=== PATIENT | female | born 1970 | race Caucasian/White ===

== ENCOUNTER 2023-09-01 16:20 | Emergency (ER) | payer MEDICAID, SELFPAY ==
[2023-09-01 16:33] VITALS: BP 160/80; PULSE 76; RESP 18; TEMP 36.6; O2SAT 94; BMI 29.5
--- NOTE | 2023-09-01 16:46 | XR_ITS ---
The [address] [address] Patient Name: MEMO SEGAL MRN: [id number] date: 1970 Sex: F Assigned Patient Location: ER Current Patient Location: ER Accession/Order Number: [id number] Exam Date: 09/01/2023 17:00 Report Date: 09/01/2023 17:27 At the request of: TERENCE FOSS Procedure: XR chest 2V EXAM: XR chest 2V HISTORY: cough COMPARISON: None. TECHNIQUE: Upright PA and lateral chest x-ray FINDINGS: The heart is not enlarged and the vasculature is not distended. No acute infiltrate, effusion or pneumothorax is identified. Mild degenerative changes are seen in the spine. XR/XR chest 2V IMPRESSION: No acute infiltrate or evidence of cardiac decompensation. Direct comparison with a previous study would be helpful in determining the chronicity of these findings. Electronically authenticated by: EDIE MORGAN Date: 09/01/2023 17:27
[2023-09-01 17:11] VITALS: O2SAT 96
--- NOTE | 2023-09-01 18:53 | ED.URI1 ---
HPI - URI/Sore Throat General Chief Complaint: Upper Respiratory Infection Stated Complaint: Upper Respiratory Infection Time Seen by Provider: 09/01/23 16:45 Source: patient Limitations: no limitations History of Present Illness HPI Narrative: Patient is a 53-year-old female who presents to the emergency department for a 4 to 5-day history of upper respiratory symptoms. She states she is concerned she may be having a reaction to the clindamycin she was prescribed for dental pain 6 days ago. She states that she started the clindamycin and has now developed runny nose, sinus drainage, cough, chest congestion. She has not developed any hives, lip swelling or tongue swelling. She has an albuterol inhaler at home that is so she has not been able to use it. She feels as though the pain in her teeth is better but she continues to feel inflamed. She has had headache, body aches. She took multiple home COVID test that were negative. No sick contacts in the home. No vomiting or diarrhea. Related Data Previous Rx's Medication Instructions Recorded albuterol sulfate 90 mcg/actuation 2 inh inhalation Q4H PRN shortness 09/01/23 aerosol inhaler of breath or wheezing #8.5 grams nwhvdtzxzdjkrem-cbgdiwehgyhizts-EO 10 ml PO Q6H PRN cold symptoms 09/01/23 2 mg-30 mg-10 mg/5 mL oral syrup #200 mL (Bromfed DM) eaormihswd-lgkpjzjljzvep-jecvldcn 1 cap PO Q8H PRN headache #6 caps 09/01/23 50 mg-300 mg-40 mg capsule (Fioricet) cefdinir 300 mg capsule 300 mg PO BID 10 days #20 caps 09/01/23 prednisone 20 mg tablet 60 mg (3 x 20 mg) PO DAILY 3 days 09/01/23 #9 tabs Allergies Allergy/AdvReac Type Severity Reaction Status Date / Time clindamycin AdvReac Intermediate Uncoded 09/01/23 16:33 Review of Systems ROS Constitutional Reports: chills; Denies: fever Ears, nose, mouth, and throat Reports: nasal congestion; Denies: throat pain Cardiovascular Denies: chest pain Respiratory Reports: cough; Denies: shortness of breath Gastrointestinal Denies: abdominal pain, nausea or vomiting Genitourinary Denies: painful urination Musculoskeletal Denies: back pain Integumentary/Breast Denies: rash Neurological Reports: headache Hematologic/Lymphatic Denies: easy bruising PFSH PFSH Social History Smoking status: Current every day smoker Exam Narrative Exam Narrative: Gen.: Awake, alert, in no distress Head: Normocephalic, atraumatic ENT: Moist mucous membranes; no facial or dental swelling, no lip swelling or tongue swelling noted. Airway widely open and patent. Multiple dental caries. Respiratory: No respiratory distress, wheezing and rhonchi noted globally Cardio: Regular rate and rhythm Extremities: Moves extremities equally Psych: Normal mood and affect Neuro: No focal neuro deficit Skin: Warm, dry, intact Constitutional Vital Signs, click to edit/add: Last Vital Signs Temp 98 F 09/01/23 16:33 Pulse 76 09/01/23 16:33 Resp 18 09/01/23 16:33 BP 160/80 H 09/01/23 16:33 Pulse Ox 96 09/01/23 17:11 O2 Del Method Room Air 09/01/23 17:11 Course Vital Signs Vital signs: Vital Signs Temperature 98 F 09/01/23 16:33 Pulse Rate 76 09/01/23 16:33 Respiratory Rate 18 09/01/23 16:33 Blood Pressure 160/80 H 09/01/23 16:33 Pulse Oximetry 94 L 09/01/23 16:33 Oxygen Delivery Method Room Air 09/01/23 16:33 Temperature 98 F 09/01/23 16:33 Pulse Rate 76 09/01/23 16:33 Respiratory Rate 18 09/01/23 16:33 Blood Pressure 160/80 H 09/01/23 16:33 Pulse Oximetry 96 09/01/23 17:11 Oxygen Delivery Method Room Air 09/01/23 17:11 MDM - URI/Sore Throat MDM Narrative Medical decision making narrative: Patient with stable vital signs, moderate wheezing. No evidence of allergic reaction at this time, though the patient is uncomfortable continuing the clindamycin. She was given a breathing treatment and will be started on cefdinir, Bromfed-DM, short course of prednisone, albuterol inhaler, Fioricet for headache. Follow-up with PCP and return to the ER if symptoms change or worsen. Medical Records Attestation: I reviewed the patient's medical records. Imaging Data Chest x-ray: Attestation: I have reviewed the pertinent imaging results. Radiologist's impression: Procedure: XR chest 2V EXAM: XR chest 2V HISTORY: cough COMPARISON: None. TECHNIQUE: Upright PA and lateral chest x-ray FINDINGS: The heart is not enlarged and the vasculature is not distended. No acute infiltrate, effusion or pneumothorax is identified. Mild degenerative changes are seen in the spine. IMPRESSION: No acute infiltrate or evidence of cardiac decompensation. Direct comparison with a previous study would be helpful in determining the chronicity of these findings. Electronically authenticated by: EDIE MORGAN Date: 09/01/2023 17:27 Discharge Plan Discharge Chief Complaint: Upper Respiratory Infection Clinical Impression: Upper respiratory infection Patient Disposition: Home, Self-Care Time of Disposition Decision: 18:59 Condition: Good Prescriptions / Home Meds: New prednisone 20 mg tablet 60 mg PO DAILY 3 Days Qty: 9 0RF albuterol sulfate 90 mcg/actuation HFA aerosol inhaler 2 inh inhalation Q4H PRN (Reason: shortness of breath or wheezing) Qty: 8.5 0RF kwykzwqcsjsvcuj-jupkryglb-QN [Bromfed DM] 2-30-10 mg/5 mL syrup 10 ml PO Q6H PRN (Reason: cold symptoms) Qty: 200 0RF cefdinir 300 mg capsule 300 mg PO BID 10 Days Qty: 20 0RF unggnxzmgy-kmwhfdifaayzo-fdoy [Fioricet] 50-300-40 mg capsule 1 cap PO Q8H PRN (Reason: headache) Qty: 6 0RF Rx Instructions: DX: R51 Instructions: Upper Respiratory Infection (ED) Stand Alone Forms: Portal Instructions Referrals: ALEXANDRA LOUIS DO [Primary Care Provider] - 1 week
[2023-09-01 18:59] VITALS: PULSE 69; RESP 18; O2SAT 97
[2023-09-01] MEDS: ALBUTEROL SULFATE 2.5 MG/3 ML VIAL NEB IH (18:59)
[2023-09-01 19:16] VITALS: BP 131/88; PULSE 74; O2SAT 94
== END 2023-09-01 19:19 | disposition home or self-care (01) ==
PROVIDERS: Emergency Provider Emergency Medicine Emergency Medical Services; PCP Family Medicine
DX: J06.9 Acute upper respiratory infection, unspecified (principal); F17.210 Nicotine dependence, cigarettes, uncomplicated
CPT/HCPCS: 71046; 94640; 99283

== ENCOUNTER 2024-05-09 14:10 | Emergency (ER) | payer MEDICAID, SELFPAY ==
[2024-05-09 14:15] VITALS: BP 131/73; PULSE 67; TEMP 36.7; O2SAT 99; BMI 32.9
--- OUTSIDE RECORDS SUMMARY | 2024-05-09 14:18 | XMS_ITS | CCD ---
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 Role Phone Dianna Thomas Unavailable Unavailable Primary Care Provider DR JARRELL Rosa Primary Care Unavailable ROSIE SPEARS Admitting Unavailable ROSIE SPEARS Consulting Unavailable ROSIE SPEARS Attending Unavailable Manjeet Martini Consulting Unavailable MARY KATE ECHEVARRIA Admitting Unavailable MARY KATE ECHEVARRIA Consulting Unavailable MARY KATE ECHEVARRIA Attending Unavailable DR JARRELL LOUIS Primary Care Unavailable GARRETT PAYAN Referring Unavailable JARRELL LOUIS Primary Care Unavailable JEFF HIGUERA Referring Unavailable JARRELL LOUIS Primary Care Unavailable Allergies Allergy Classification Reported Allergen(s) Allergy Type Date of Onset Reaction(s) Facility (2 sources) Sulfamethoxazole / Trimethoprim Drug Allergy per PCP due to 1 [facility] Other (1 source) Sulfamethoxazole Drug Allergy 02-17-20 24 per PCP due to 1 [facility] (1 source) Trimethoprim Drug Allergy 02-17-20 24 per PCP due to 1 [facility] Medications Current Medications Medication Drug Class(es) Dates Sig (Normalized) Sig (Original) ALPRAZolam 0.25 mg oral tablet (3 sources) Benzodiazepine Start: 02-17-2024 Alprazolam Active MG PO February 17, 2024 12:00am Xanax Not-Taking Xanax Active amoxicillin 500 mg oral capsule (3 sources) Penicillin-class Antibacterial Start: 02-17-2024 take 500 mg by mouth twice daily Amoxicillin Active 500 MG PO Twice daily 11 07February 17, 2024 12:00am Start: 05-15-2021 take 1 capsule by cox branson three times daily Amoxicillin 500 MG 1 capsule Orally 3 times per day for 10 day(s) Apr, Not-Taking clindamycin 300 mg oral capsule (3 sources) Lincosamide Antibacterial Start: 02-20-2022 take 1 capsule by mouth every eight hours Clindamycin HCl 300 MG 1 cap(s) Orally tid for 10 day(s) Jun, Active hydroCHLOROthiazide 25 mg oral tablet (3 sources) Thiazide Diuretic Start: 02-17-2024 Hydrochlorothiazide Active MG PO February 17, 2024 12:00am hydroCHLOROthiaz areli Active hydrocortisone 25 mg/ml topical cream (1 source) Corticosteroid Start: 02-17-2024 Hydrocortisone (Procto-Med Hc) 2.5 % cream with perineal applicator Active NM February 17, 2024 12:00am metoprolol tartrate 100 mg oral tablet (3 sources) beta-Adrenergic Hung Start: 02-17-2024 Metoprolol Tartrate Active MG PO February 17, 2024 12:00am Metoprolol Succi prabhakar Active Potassium (2 sources) Potassium Active potassium chloride 10 meq extended release oral tablet (1 source) Start: 02-17-2024 Potassium Chloride Active MEQ PO February 17, 2024 12:00am predniSONE 20 mg oral tablet (1 source) Start: 02-17-2024 take 20 mg by mouth once daily Prednisone Active 20 MG PO Daily 3 3 February 17, 2024 12:00am Completed/Discontinued Medications Medication Drug Class(es) Dates Sig (Normalized) Sig (Original) fluconazole 150 mg oral tablet (2 sources) Azole Antifungal Start: 08-28-2020 take 1 tablet by mouth once Diflucan 150 MG 1 tablet Orally once; after antibiotics are finished if needed for 1 days Aug, Not-Taking nitrofurantoin, macrocrystals 25 mg / nitrofurantoin, monohydrate 75 mg oral capsule (2 sources) Nitrofuran Antibacterial Start: 08-28-2020 take 1 capsule by mouth every twelve hours Macrobid 100 MG 1 capsule Orally Twice a day for 5 days Aug, Not-Taking phenazopyridine hydrochloride 200 mg oral tablet (2 sources) Start: 08-28-2020 take 1 tablet by mouth every eight hours Pyridium 200 MG 1 tablet after meals Orally Three times a day for 2 day(s) Aug, Not-Taking Problems Problem Classification Problem Date Documented Da te Episodic/Chronic Abdominal pain (4 sources) Unspecified abdominal pain; Translations: [UNSPECIFIED ABDOMINAL PAIN] Onset: 06-22-2022 Episodic Calculus of urinary tract (1 source) Personal history of urinary calculi; Translations: [PERSONAL HISTORY OF URINARY CALCULI] Onset: 09-11-2022 Episodic Chronic kidney disease (1 source) Chronic kidney disease, stage 2 (mild); Translations: [Chronic kidney disease, stage 2 (mild)] Onset: 03-11-2024 Chronic Chronic kidney disease (1 source) Chronic kidney disease; Translations: [Chronic kidney disease, stage 3b] Onset: 11-28-2023 Disorders of teeth and jaw (3 sources) Dental caries, unspecified; Translations: [Dental caries] Onset: 02-20-2022 Resolved: 02-20-2022 Episodic E Codes: Natural/environment (1 source) Other and unspecified overexertion or strenuous movements or postures, initial encounter; Translations: [OTH AND UNS OVREXRT/STRN MVMT/POS INT] Onset: 09-11-2022 Episodic Other aftercare (1 source) 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; Translations: [OTH GROUP HOME CURRENT DRUG THERAPY] Onset: 09-11-2022 Episodic Other connective tissue disease (3 sources) Pain in left thigh; Translations: [PAIN IN LEFT THIGH] Onset: 09-09-2022 Episodic Residual codes; unclassified (1 source) Procedure and treatment not carried out due to patient leaving prior to being seen by health care provider; Translations: [PROC AND TX NOT CARRIED OUT PT LEAVE] Onset: 07-04-2022 Episodic Sprains and strains (1 source) Strain of unspecified muscles, fascia and tendons at thigh level, left thigh, initial encounter; Translations: [STRAIN UNS MUSC FASC LT THIGH INIT] Onset: 09-11-2022 Episodic Substance-related disorders (1 source) Nicotine dependence, cigarettes, uncomplicated; Translations: [NICOTINE DEPEND CIGARETTES UNCOMP] Onset: 09-11-2022 Chronic Results Test Name Value Interpretation Reference Range Facility ALBUMINon 03-11-2024 Albumin [Mass/Vol] 3.8 g/dL Normal 3.2-5.[address] [facility] Comment on above: Performed By: #### C BC, 1751-7, [facility], 72515-3, 7017-1, 2731-8, 73864-8 #### [facility] ([id number]) [address], [address] [place] [address] BASIC METABOLIC PANLon 03-11 Anion gap [Moles/Vol] 12 mmol/L Normal 5-15 [facility] Comment on above: Performed By: #### Paula COKER, 1751-7, BMP, 95624-8, 2777-1, 2731-8, 15576-1 #### [facility] ([id number]) [address], [address] [place] [address] Calcium [Mass/Vol] 8.7 mg/dL Normal 8.5-10.5 [facility] Comment on above: Performed By: #### Paula COKER, 1751-7, BMP, 64830-5, 2777-1, 2731-8, 40595-9 #### [facility] ([id number]) [address], [address] [place] [address] Chloride [Moles/Vol] 103 mmol/L Normal 98-109 [facility] Comment on above: Performed By: #### Paula COKER, 175-7, BMP, 59342-9, 2777-1, 273-8, 51939-2 #### [facility] ([id number]) [address], [address] [place] [address] CO2 [Moles/Vol] 26 mmol/L Normal 22-32 [facility] Comment on above: Performed By: #### Paula BC, 1751-7, BMP, 37813-1, 2777-1, 2731-8, 48368-5 #### [facility] ([id number]) [address], [address] [place] [address] Creatinine [Mass/Vol] 1.87 mg/dL High 0.40-1.00 [facility] Comment on above: Result Comment: METH OD TRACEABLE TO IDMS STANDARD Performed By: #### Paula BC, 1751-7, BMP, 88282-1, 2777-1, 2731-8, 08753-4 #### [facility] ([id number]) [address], [address] [place] [address] GFR/1.73 sq M.predicted among non-blacks MDRD (S/P/Bld) [Vol rate/Area] 32 mL/min/{1.73_m2} Low >59 [facility] Comment on above: Result Comment: Reported eGFR is based on the CKD-EPI 2020 equation that does not use a race coefficient. Performed By: #### Paula COKER, 1750-7, BMP, 59598-0, 2777-1, 2731-8, 09315-5 #### [facility] ([id number]) [address], [address] [place] [address] Glucose [Mass/Vol] 112 mg/dL High 65-99 [facility] Comment on above: Performed By: #### Paula COKER, 7, BMP, 53989-8, 2777-1, 2731-8, 95723-9 #### [facility] ([id number]) [address], [address] [place] [address] Potassium [Moles/Vol] 2.7 mmol/L Critically low 3.5-5.0 [facility] Comment on above: Performed By: #### Paula COKER, 1750-7, BMP, 75530-5, 2777-1, 2731-8, 49871-5 #### [facility] ([id number]) [address], [address] [place] [address] Sodium [Moles/Vol] 141 mmol/L Normal 134-146 [facility] Comment on above: Performed By: #### Paula COKER, 175-7, BMP, 60985-5, 2777-1, 2731-8, 29364-7 #### [facility] ([id number]) [address], [address] [place] [address] Urea nitrogen [Mass/Vol] 17 mg/dL Normal 5-23 [facility] Comment on above: Performed By: #### C BC, 1751-7, BMP, 70345-7, 2777-1, 2731-8, 65905-7 #### [facility] ([id number]) [address], [address] [place] [address] COMPLETE BLOOD COUNTon 03-11 Erythrocyte distribution width (RBC) [Ratio] 14.3 % Normal 11.5-15.0 [facility] Comment on above: Performed By: #### C BC, 175-7, BMP, 79429-8, 2777-1, 2731-8, 56905-9 #### [facility] ([id number]) [address] [address] [place] [address] Hematocrit (Bld) [Volume fraction] 41.1 % Normal 35-47 [facility] Comment on above: Performed By: #### Paula BC, 175-7, BMP, 18621-8, 2777-1, 2731-8, 27463-8 #### [facility] ([id number]) [address] [address] [place] [address] Hemoglobin (Bld) [Mass/Vol] 14.7 g/dL Normal 11.7-15.5 [facility] Comment on above: Performed By: #### Paula BC, 175-7, BMP, 62817-8, 2777-1, 2731-8, 89649-7 #### [facility] ([id number]) [address], [address] [place] [address] MCH (RBC) [Entitic mass] 31.7 pg Normal 27-34 [facility] Comment on above: Performed By: #### aPula BC, 1751-7, BMP, 14880-6, 2777-1, 2731-8, 61244-9 #### [facility] ([id number]) [address], [address] [place] [address] MCHC (RBC) [Mass/Vol] 35.9 g/dL Normal 32-36 [facility] Comment on above: Performed By: #### Paula COKER, 1751-7, BMP, 14544-9, 2777-1, 2731-8, 28716-7 #### [facility] ([id number]) [address], [address] [place] [address] MCV (RBC) [Entitic vol] 89 fL Normal 80-100 [facility] Comment on above: Performed By: #### Paula COKER, 175-7, BMP, 56418-8, 2777-1, 2731-8, 71999-5 #### [facility] ([id number]) [address], [address] [place] [address] Platelet mean volume (Bld) [Entitic vol] 9.1 fL Normal 7-12 [facility] Comment on above: Performed By: #### Paula COKER, 1750-7, BMP, 65513-2, 2777-1, 2731-8, 73418-6 #### [facility] ([id number]) [address], [address] [place] [address] Platelets (Bld) [#/Vol] 214 10*3/uL Normal 150-450 [facility] Comment on above: Performed By: #### Paula COKER, 1750-7, BMP, 55260-2, 2777-1, 2731-8, 24875-5 #### [facility] ([id number]) [address], [address] [place] [address] RBC COUNT 4.64 X10E12/L Normal 3.80-5.20 [facility] Comment on above: Performed By: #### Paula COKER, 175-7, BMP, 44391-7, 2777-1, 2731-8, 25873-0 #### [facility] ([id number]) [address], [address] [place] [address] WBC (Bld) [#/Vol] 5.8 10*3/uL Normal 4.0-11.0 [facility] Comment on above: Performed By: #### C , 175-7, [facility], 62568-7, 7-1, 1-8, 70849-3 #### [facility] ([id number]) [address], [address] [place] [address] MAGNESIUMon 03-11-2024 Magnesium [Mass/Vol] 2.1 mg/dL Normal 1.8-2.6 [facility] Comment on above: Performed By: #### C , 1750-7, [facility], 25436-1, 2776-, 2730-8, 67558-1 #### [facility] ([id number]) [address], [address] [place] [address] MICROALBUMIN - ALBUMIN:CREAT ININE URINE RATIOon 03-11-2024 ALB/CREAT RATIO 33.9 mg/g creat High 0.0-30.0 [facility] Comment on above: Performed By: #### 6 30-4 #### [facility] ([id number]) [address], [address] [place] [address] Albumin DL <= 20 mg/L (U) [Mass/Vol] 4.5 mg/dL High 0.0-1.9 [facility] Comment on above: Performed By: #### 6 30-4 #### [facility] ([id number]) [address], [address] [place] [address] URINE CREAT 132.58 mg/dL Normal [facility] Comment on above: Performed By: #### 6 30-4 #### [facility] ([id number]) [address], [address] [place] [address] PHOSPHORUSon 03-11-2024 Phosphate [Mass/Vol] 3.5 mg/dL Normal 2.4-4.9 [facility] Comment on above: Performed By: #### C BC, 1751-7, BMP, 55447-5, 2777-1, 2731-8, 61156-4 #### [facility] ([id number]) [address], [address] [place] [address] Parathyrin.intact [Mass/Vol] on 03-11-2024 PTH INTACT 52 pg/mL Normal 12- [facility] Comment on above: Performed By: #### C BC, 1751-7, BMP, 67499-4, 2777-1, 2731-8, 20230-7 #### [facility] ([id number]) [address] [facility] [address], [address] [place] [address] URINALYSISon 03-11-2024 Bilirubin Ql (U) Negative Normal NEG [facility] Comment on above: Performed By: #### DANDY Matthews #### [facility] ([id number]) [address] [facility], [address] [place] [address] BLOOD/HGB Trace Abnormal NEG [facility] Comment on above: Performed By: #### DANDY Matthews #### [facility] ([id number]) [address], [address] [place] [address] Color (U) YELLOW Normal YELLOW [facility] Comment on above: Performed By: #### DANDY Matthews #### [facility] ([id number]) [address], [address] [place] [address] Glucose Ql (U) Negative Normal NEG [facility] Comment on above: Performed By: #### DANDY Matthews #### [facility] ([id number]) [address], [address] [place] [address] Ketones Ql (U) Negative Normal NEG [facility] Comment on above: Performed By: #### DANDY Matthews #### [facility] ([id number]) [address], [address] [place] [address] Leukocyte esterase Test strip Ql (U) Large Abnormal NEG [facility] Comment on above: Performed By: #### Saqib Nelson, HENRYCHARLA #### [facility] ([id number]) [address], [address] [place] [address] MUCOUS PRESENT Abnormal NONE [facility] Comment on above: Performed By: #### Saqib Nelson, MALCHARLA #### [facility] ([id number]) [address] [place] [address] Nitrite Ql (U) Positive Abnormal NEG [facility] Comment on above: Performed By: #### Saqib Nelson, HENRYCHARLA #### [facility] ([id number]) [address], [address] [place] [address] pH (U) 6.5 [pH] Normal 5.0-8.5 [facility] Comment on above: Performed By: #### Saqib Nelson, HENRYCHARLA #### [facility] ([id number]) [address], [address] [place] [address] Protein Ql (U) 30 mg/dL Abnormal NEG [facility] Comment on above: Performed By: #### Saqib Nelson, HENRYCHARLA #### [facility] ([id number]) [address], [address] [place] [address] R.B.CELLS 3 /hpf Normal 0-5 [facility] Comment on above: Performed By: #### Saqib Nelson, MALCHARLA #### [facility] ([id number]) [address], [address] [place] [address] Specific gravity (U) [Rel density] 1.017 Normal 1.003-1.035 [facility] Comment on above: Performed By: #### Saqib Nelson, MALCHARLA #### [facility] ([id number]) [address], [address] [place] [address] SQUAMOUS EPITHELIUM 1 /hpf Normal 0-5 [facility] Comment on above: Performed By: #### Saqib Nelson HENRYCHARLA #### [facility] ([id number]) [address], [address] [place] [address] TURBIDITY HAZY Abnormal CLEAR [facility] Comment on above: Performed By: #### DANDY Matthews #### [facility] ([id number]) [address], [address] [place] [address] Urobilinogen (U) [Mass/Vol] mg/dL Normal <1.1 [facility] Comment on above: Performed By: #### DANDY Matthews #### [facility] ([id number]) [address], [address] [place] [address] W.B.CELLS 393 /hpf High 0-5 [facility] Comment on above: Performed By: #### DANDY Matthews #### [facility] ([id number]) [address] [place] [address] Vitamin D+Metabolites [Mass/ Vol]on 03-11-2024 VITAMIN D 25 HYD TOT 25.6 ng/mL Low 30-100 [facility] Comment on above: Result Comment: Vitamin D status 25 [place] Vitamin D Deficiency <20 ng/mL Insufficiency 20-29 ng/mL Sufficiency 30-100 ng/mL Toxicity >100 ng/mL NOTE: A pediatric reference range has not been established by the needle punch machine operator of this kit. The [place] [employer] recommends a Vitamin D level of = or >20ng/mL in infants and children. Performed By: #### C BC, 1751-7, BMP, 30833-5, 2777-1, 2731-8, 33685-0 #### [facility] ([id number]) [address] [place] [address] No Panel InformationOrdered By: Tori Escobedo on 02-17-2024 Quick Strep (POC) [facility] URINALYSISon 11-28-2023 Bilirubin Ql (U) Negative Normal NEG [facility] BLOOD/HGB Trace Abnormal NEG [facility] Color (U) YELLOW Normal YELLOW [facility] Glucose Ql (U) Negative Normal NEG [facility] Ketones Ql (U) Negative Normal NEG [facility] Leukocyte esterase Test strip Ql (U) Large Abnormal NEG [facility] MUCOUS PRESENT Abnormal NONE [facility] Nitrite Ql (U) Positive Abnormal NEG [facility] pH (U) 6.0 [pH] Normal 5.0-8.5 [facility] Protein Ql (U) 30 mg/dL Abnormal NEG [facility] R.B.CELLS 9 /hpf High 0-5 [facility] Specific gravity (U) [Rel density] 1.016 Normal 1.003-1.035 [facility] SQUAMOUS EPITHELIUM 3 /hpf Normal 0-5 [facility] TURBIDITY HAZY Abnormal CLEAR [facility] Urobilinogen (U) [Mass/Vol] mg/dL Normal <1.1 [facility] W.B.CELLS 293 /hpf High 0-5 [facility] URINE CULTUREon 11-28-2023 Bacteria identified Cx Nom (U) CULTURE RESULTS >100,000 ORGANISMS/mL KLEBSIELLA PNEUMONIAE >100,000 ORGANISMS/mL KLEBSIELLA PNEUMONIAE VARIANT WITH SAME SUSCEPTIBILITY [ S = SUSCEPTIBLE R = RESISTANT I = INTERMEDIATE S-DO = Susceptible-dose dependent NS = Non-suscceptible NO = No Interpretation ] Organism: KLEBSIELLA PNEUMONIAE Antibiotic Interpretation JEANINE Status AMPICILLIN R >=32 F AMP/SULBACTAM S 8/4 F CEFAZOLIN S <=4 F CEFTRIAXONE S <=1 F CIPROFLOXACIN S <=0.25 F GENTAMICIN S <=1 F LEVOFLOXACIN S <=0.12 F NITROFURANTOIN R 128 F PIPERACIL/TAZOBACTA M S 8 F TOBRAMYCIN S <=1 F TRIMETH/SULFAMETHOX AZOLE S <=1/19 F Susceptible [facility] Comment on above: Performed By: #### 6 30-4 #### [facility] ([id number]) [address] [place] [address] XR HIP LT 2 3V W PELVISon XR HIP LT 2 3V W PELVIS EXAM: XR HIP LT 2 3V W PELVIS HISTORY: Pain COMPARISON: None. TECHNIQUE: An AP view of the pelvis with 2 additional views of the left hip are performed. FINDINGS: There is no acute fracture. The bony structures are intact. Joint spaces are symmetric. 2. Oval radiodensities project over the right lower abdomen, which may represent ingested medication. There are phleboliths within the pelvis. IMPRESSION: No acute bony abnormality. Electronically authenticated by: MANJEET MARTINI Date: 2022-09-09 17:50 Normal [facility] CULTURE URINEon 06-25-2022 CULTURE URINE Isolate 1 Escherichia coli >100,000 cfu/mL of ORGANISM 1 Escherichia coli ANTIBIOTIC M.I.C RX STATUS Ampicillin 4 S F Ampicillin/Sulbacta m <=2 S F Piperacillin/Tazoba ctam <=4 S F Cefazolin <=4 S F Ceftazidime <=1 S F Ceftriaxone <=1 S F Ertapenem <=0.5 S F Imipenem <=0.25 S F Amikacin <=2 S F Gentamicin <=1 S F Tobramycin <=1 S F Ciprofloxacin <=0.25 S F Levofloxacin <=0.12 S F Nitrofurantoin <=16 S F Trimethoprim/Sulfam ethoxazole <=20 S F Normal [facility] Comment on above: Performed By: #### U RCX #### [facility] [address] [address] [address] [place] [facility] URINE PROFILEon 2 Bilirubin Ql (U) Negative Normal NEGATIVE [facility] Comment on above: Performed By: #### E JANNA HENAO #### [facility] [address] [place], [place] [address] Dr. [place] Clarity (U) SL CLOUDY Abnormal CLEAR [facility] Comment on above: Performed By: #### E JANNA HENAO #### [facility] [address] [place] [address] Dr. [place] Color (U) LT. YELLOW Normal YELLOW [facility] Comment on above: Performed By: #### Chelo HENAO UMICRO #### [facility] [address] [place] [address] Dr. Ginny DE JESUSAHJillian A micrscopic examination will be performed if indicated. Normal [facility] Comment on above: Performed By: #### Chelo HENAO UMICRO #### [facility] [address] [place] [address] Dr. [place] Glucose Ql (U) Negative Normal NEGATIVE [facility] Comment on above: Performed By: #### MARELY KINCAIDICRO #### [facility] [address] [place] [address] Dr. [place] Hemoglobin Ql (U) Negative Normal NEGATIVE [facility] Comment on above: Performed By: #### MINERVA KINCAIDRO #### [facility] [address] [place] [address] Dr. [place] Ketones Ql (U) Negative Normal NEGATIVE [facility] Comment on above: Performed By: #### MINERVA KINCAIDRO #### [facility] [address] [place] [address] Dr. [place] LEUKOCYTES MODERATE Abnormal NEGATIVE [facility] Comment on above: Performed By: #### MARELY KINCAIDICRO #### [facility] [address] [place] [address] Dr. [place] Nitrite Ql (U) Positive Abnormal NEGATIVE [facility] Comment on above: Performed By: #### Chelo HENAO UMICRO #### [facility] [address] [place] [address] Dr. [place] pH (U) 6.0 [pH] Normal 5-9 [facility] Comment on above: Performed By: #### Chelo HENAO UMICRO #### [facility] [address] [place] [address] Dr. [place] SPEC GRAVITY 1.015 Normal 1.005-<=1.[address] [facility] Comment on above: Performed By: #### E RUR, UMICRO #### [facility] [address] [place] [address] Dr. [place] UA PROTEIN Negative Normal NEGATIVE/ TRACE [facility] Comment on above: Performed By: #### E RUR, UMICRO #### [facility] [address] [place] [address] Dr. [place] UR MICRO IND INDICATED Normal [facility] Comment on above: Performed By: #### E RUR, UMICRO #### [facility] [address] [place] [address] Dr. [place] Urobilinogen Qn (U) 0.2 {Rachele'U}/dL Normal 0.2 - 1. 0 [facility] Comment on above: Performed By: #### E RUR, UMICRO #### [facility] [address] [place] [address] Dr. [place] URINE MICROSCOPIC ONLYon BACTERIA MODERATE Abnormal NONE SEEN [facility] Comment on above: Performed By: #### E RUR, UMICRO #### [facility] [address] [place] [address] Dr. [place] Bacteria identified Cx Nom (U) INDICATED Normal [facility] Comment on above: Performed By: #### E RUR, UMICRO #### [facility] [address] [place] [address] Dr. [place] CAST NONE SEEN Normal NONE SEEN [facility] Comment on above: Performed By: #### E RUR, UMICRO #### [facility] [address] [place] [address] Dr. Ginny River Crystals LM Nom (Urine sed) NONE SEEN Normal NONE SEEN [facility] Comment on above: Performed By: #### E RUR, UMICRO #### [facility] [address] [place] [address] Dr. Ginny River Epithelial cells LM Ql (Urine sed) MODERATE Abnormal NONE SEEN /RARE [facility] Comment on above: Performed By: #### E RUR, UMICRO #### [facility] [address] [place], [place] [address] Dr. Ginny River MUCOUS NONE SEEN Normal NONE SEEN [facility] Comment on above: Performed By: #### MINERVA KINCAIDRO #### [facility] [address] [place], [place] [address] Dr. Ginny River RBC 0-2 Normal 0-2 [facility] Comment on above: Performed By: #### MINERVA KINCAIDRO #### [facility] [address] [place] [address] [address] Ginny River WBC 20-50 Abnormal NONE SEEN [facility] Comment on above: Performed By: #### JANNA KINCAID #### [facility] [address] [place] [address] [address] Ginny River Vital Signs Date Time Vital Sign Value Performing Clinician Facility 02-17-2024 18:44-0400 Body height 160.02 cm [facility] 02-17-2024 18:44-0400 Body mass index (BMI) [Ratio] 33.3 kg/m2 [facility] 02-17-2024 18:44-0400 Body temperature 97.2 [degF] [facility] 02-17-2024 18:44-0400 Body weight 85.5 kg [facility] 02-17-2024 18:44-0400 Heart rate 64 /min [facility] 02-17-2024 18:44-0400 Respiratory rate 18 /min [facility] 02-17-2024 18:44-0400 SaO2% (BldA) [Mass fraction] 97 % [facility] 07-18-2023 17:35-0400 Body height 160.02 cm Dianna Thomas Other [facility] 07-18-2023 17:35-0400 Body mass index (BMI) [Ratio] 34.4 kg/m2 Dianna Thomas Other [facility] 07-18-2023 17:35-0400 Body temperature 97.9 [degF] Dianna Martha Other [facility] 07-18-2023 17:35-0400 Body weight 88.09 kg Dianna Martha Other [facility] Other 07-18-2023 17:35-0400 Diastolic blood pressure 75 mm[Hg] Dianna Martha Other [facility] 07-18-2023 17:35-0400 Respiratory rate 18 /min Dianna Martha Other [facility] 07-18-2023 17:35-0400 SaO2% (BldA) [Mass fraction] 95 % Dianna Martha Other [facility] 07-18-2023 17:35-0400 Systolic blood pressure 131 mm[Hg] Dianna Martha Other [facility] 02-20-2022 19:20-0400 Body height 160.02 cm Dianna Martha Other [facility] 02-20-2022 19:20-0400 Body mass index (BMI) [Ratio] 33.83 kg/m2 Dianna Martha Other [facility] 02-20-2022 19:20-0400 Body temperature 98.5 [degF] Dianna Martha Other [facility] 02-20-2022 19:20-0400 Body weight 86.64 kg Dianna Martha Other [facility] Other 02-20-2022 19:20-0400 Respiratory rate 16 /min Dianna Martha Other [facility] Other 02-20-2022 19:20-0400 SaO2% (BldA) [Mass fraction] 97 % Dianna Lainezmond Other [facility] Other Encounters Encounter Date Encounter Type Care Provider Facility Start: 03-11-2024 End: 03-11-2024 ambulatory [facility] Start: 02-17-2024 End: 02-17-2024 ambulatory [facility] Work Phone: Start: 02-17-2024 End: 02-17-2024 Patient encounter procedure [facility] Work Phone: Start: 11-28-2023 End: 11-28-2023 ambulatory [facility] Start: 07-18-2023 End: 07-18-2023 ambulatory Dianna Thomas Other [facility] Other Start: 07-18-2023 Office outpatient visit 15 minutes Dianna Thomas [facility] Start: 09-09-2022 End: 09-09-[address] JARRELL LOUIS Facility:[facility] Start: 06-22-2022 End: 06-22-2022 ambulatory MARY KATE ECHEVARRIA Facility:[facility] Start: 06-13-2022 Transcribe [facility] Start: 02-20-2022 End: 02-20-2022 ambulatory Dianna Thomas Other [facility] Other Start: 02-20-2022 Office outpatient visit 15 minutes Dianna Thomas [facility] Procedures Date Procedure Procedure Detail Performing Clinician Start: 02-17-2024 Quick Strep (POC) Plan of Treatment Date Care Activity Detail Author Start: 06-22-2022 Influenza vaccination Influenza Vacc ine (#1) [facility] Start: 2021 Measurement of occul t blood in single stool specimen FIT [facility] Start: 2021 Screening for malign ant neoplasm of breast Mammography [facility] Start: 2021 Screening for malign ant neoplasm of colon CRC Screening [facility] Start: 2021 Shingles (RZV) Vacci ne (1 of 2) Shingles (RZV) Vaccine (1 of 2) [facility] Start: 2016 Cholesterol [Mass/vo lume] in Serum or Plasma Cholesterol [facility] Start: 1992 Screening for malign ant neoplasm of cervix Pap Smear [facility] Start: 1990 Tetanus vaccination Tetanus (T d or Tdap) Booster [facility] Start: 1989 Hepatitis C screening Hepatitis C An tibody [facility] Start: 1989 Tetanus + diphtheria + acellular pertussis vaccine (product) Tdap Booster [facility] Start: 1986 HIV screening HIV Test [facility] Start: 1970 COVID-19 Vaccine (#1) COVID-19 Vacci ne (#1) [facility] Start: 1971 Screening for malign ant neoplasm of colon [facility] Payers Date Payer Category Payer Medicaid [id number] 2021 Medicaid [employer] MED[employer] [id number] 2021-Present [phone] [address] [place] [id number] Medicaid HMO [id number] 1971 Unknown [id number] 1971 Unknown [id number] 1971 Unknown [id number] 1971 Unknown [id number] 1959 Unknown [id number] Medicaid [place] [employer] [id number] Self-pay Self Pay [id number] Social History Date Type Detail Facility Unknown if ever smoked [facility] Other Sex Assigned At Sex Assigned At Bir th [facility] Other Tobacco smoking status [facility] Tobacco smoking consumption unknown [facility] Start: 1970 Sex Assigned At Not [facility] file [facility] Start: 1970 Sex Assigned At Female F [facility] Evaluation note 07-18-2023 Note Date & Type Note Facility 07-18-2023 Evaluation note Encounter Date Diagnosis Assessment Notes Jun, Dental abscess (ICD-10 - K04.7) Drink plenty fluids, and get plenty of rest. Take the clindamycin as prescribed until gone. Take Tylenol as needed for pain. Rinse your mouth several times a day with warm water with peroxide. Follow-up with your dentist as soon as possible. [facility] Other Evaluation note 02-20-2022 Note Date & Type Note Facility 02-20-2022 Evaluation note Encounter Date Diagnosis Assessment Notes Feb, Dental decay (ICD-10 - K02.9) Drink plenty fluids, get plenty of rest. Take the antibiotic as prescribed until gone. Take ibuprofen, 600 to 800 mg with food up to 3 times a day as needed for mild to moderate pain. For severe pain take 2 extra strength Tylenol with your Motrin dose. Follow-up with your dentist as scheduled. [facility] Other Evaluation note Note Date & Type Note Facility Evaluation note Diagnosis Dental caries- Primary Unspecified dental caries documented in this encounter [facility] Evaluation note Note Date & Type Note Facility Evaluation note No assessment information availa [facility] Work Phone: History general Narrative - Reported Note Date & Type Note Facility History general Narrative - Reported Type Medical History anemia, iron deficient Medical History hypertension Medical History only one kidney on right side. Medical History stage 3 kidney disease. Surgical History tubal ligation Surgical History teeth removal Surgical History eyes lift [facility] Other Reason for Referral Specialty Diagnoses / Procedures Referred By Lety guallpa Referred To Contact Oral Surgery Diagnoses Dental caries Kinsey Clarke DDS [address] [place] [address] [facility] [address] [place] [address] Referral ID Status Reason Start Date Expiration Date V isits Requested Visits Authorized [id number] Authorized 06/13/2022 06/13/2023 3 3 Scheduling Instructions Please call the clinical specialty rep Clinic at [facility] at to schedule an appointment if one was not made for you today. Comments EXT #18, 29 WANTS SEDATION Summary Purpose Family History No Family History Records Found Relationship Condition Age at Onset Recorded Date/T randy father Unknown Not Specified Heart disease Unknown Diabetes mellitus Unknown Hypertension Unknown Advance Directives No Advanced Directives Records Found Advance Directive Response Recorded Date/ Time Advance Directives No February 16 6:26pm Chief Complaint and Reason for Visit Chief Complaint Sore throat Additional Source Comments REASON FOR VISIT (unrecogniz ed section and content) TOOTH PAIN RIGHT LOWERTOOTH ACHE INFORMATION SOURCE (unrecogn ized section and content) DATE CREATED AUTHOR 09/13/2022 [facility] DATE CREATED AUTHOR 'S ORGANIZ ATION 03/13/2024 [facility] Care Teams (unrecognized sec tion and content) Team Status: Active Member Role Status Dates Jarrell Louis DO Primary Care Provider Active Team Status: Inactive Member Role Status Dates Jarrell Louis DO Primary Care Provider Active Start: February 17, 2024 End: February 17, 2024 Tori Escobedo APRN Attending Provider Active S tart: February 17, 2024 End: February 17, 2024 Goals (unrecognized section and content) Goals may be documented in a n alternate section FOR RECORDS PERTAINING TO PATIENTS WHO ARE OR HAVE BEEN ENROLLED IN A CHEMICAL DEPENDENCY/SUBSTANCEABUSE PROGRAM, SOME INFORMATION MAY BE OMITTED. This clinical summary was aggregated from multiple sources. Caution should be exercised in using it in the provision of clinical care. This summary normalizes information from multiple sources, and as a consequence, information in this document may materially change the coding, format and clinical context of patient data. In addition, data may be omitted in some cases. CLINICAL DECISIONS SHOULD BE BASED ON THE PRIMARY CLINICAL RECORDS. [facility] [employer] [facility]. provides no warranty or guarantee of the accuracy or completeness of information in this document.
--- NOTE | 2024-05-09 14:21 | XR_ITS ---
The [address] [address] Patient Name: MEMO SEGAL MRN: [id number] date: 1970 Sex: F Assigned Patient Location: ER Current Patient Location: ER Accession/Order Number: [id number] Exam Date: 05/09/2024 14:45 Report Date: 05/09/2024 15:18 At the request of: TORIBIO SEPULVEDA Procedure: XR foot RT min 3V IMAGES REVIEWED: XR foot RT min 3V COMPARISON: None available. CLINICAL INDICATION: pain, injury FINDINGS/IMPRESSION: No evidence of acute osseous abnormality of the right foot. Small plantar calcaneal spur. Electronically authenticated by: SUKUMAR REYES Date: 05/09/2024 15:18
--- NOTE | 2024-05-09 15:20 | ED_ITS ---
HPI HPI - Extremity Injury (Lower) General Chief Complaint: Extremity Injury, Lower Stated Complaint: LOWER EXTREMITY PAIN Time Seen by Provider: 05/09/24 14:20 Source: patient Mode of arrival: walk-in Limitations: no limitations History of Present Illness HPI Narrative: Pt is a 53-year-old female presents to the ER with concerns of right heel pain. She presents in [employer]. 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 States she was at work walking when she felt a pop in her heel she has had similar pain in the past that got better with purchasing new shoes. Patient notes at times she can walk without too much discomfort but after prolonged sitting and to start standing or repeat walking she notes increased pain in the heel. She denies any fall or injury. She can take Tylenol for pain but has a history of renal insufficiency. Patient appears in no distress at bedside. She denies pain to her ankle calf or knee. Left leg symptomatic. Denies any pain to the Achilles tendon. Injury: Right: foot Related Data Home Medications ?Medication ?Instructions ?Recorded ?Confirmed alprazolam 0.25 mg tablet 0.25 mg PO DAILY PRN anxiety 05/09/24 05/09/24 hydrochlorothiazide 25 mg tablet 25 mg PO DAILY 05/09/24 05/09/24 metoprolol tartrate 100 mg tablet 100 mg PO BID 05/09/24 05/09/24 potassium chloride 10 mEq 30 meq PO BID 05/09/24 05/09/24 tablet,extended release Previous Rx's ?Medication ?Instructions ?Recorded albuterol sulfate 90 mcg/actuation 2 inh inhalation Q4H PRN shortness 09/01/23 aerosol inhaler of breath or wheezing #8.5 grams gmlbqpaopc-yyyhqelmoiopm-mryczbso 1 cap PO Q8H PRN headache #6 caps 09/01/23 50 mg-300 mg-40 mg capsule (Fioricet) Allergies Allergy/AdvReac Type Severity Reaction Status Date / Time clindamycin AdvReac Intermediate Uncoded 09/01/23 16:33 Opioid HPI Opioid Management Most Recent Pain and Opioid Data: Last Pain Scale 7 05/09/24 14:19 Review of Systems ROS Constitutional Denies: fever or chills Eyes Denies: change in vision or blurry vision Ears, nose, mouth, and throat Denies: throat pain, neck pain, throat swelling or difficulty swallowing Cardiovascular Denies: chest pain or palpitations Respiratory Denies: shortness of breath or cough Gastrointestinal Denies: abdominal pain, nausea or vomiting Genitourinary Denies: painful urination Musculoskeletal Reports: other (Pain right heel.); Denies: back pain or neck pain Integumentary/Breast Denies: rash [facility] Social History Smoking status: Current every day smoker Exam Narrative Exam Narrative: Vital signs reviewed and nurse's notes. The patient is not hypoxic. General: Alert, no acute distress, patient resting comfortably Skin: warm, intact, no pallor noted, no evidence of rash Head: Normocephalic, atraumatic Eye: Normal conjunctiva, no exudates Respiratory: No acute distress, lungs CTA Musculoskeletal: No evidence of deformity to the right ankle or foot. There is no swelling. There is no ecchymosis. No erythema or warmth noted. DP and PT pulses are intact 2+. Normal sensation, normal capillary refill less than 2 seconds. There is no cyanosis or mottling noted. The patient has tenderness to medial tubercle of right heel. The patient has no laxity with stressing ankle joint . The patient was able to flex and extend ankle without pain. motors all toes. . No tenderness noted to the 5th MT, midfoot, ankle or proximal fibular area. There is no pain with calcaneal squeeze, achilles tendon is intact and no defect is palpated. The patient has no pelvic instability. The patient has no shortening or rotation noted to the bilateral lower extremities. Neurological: alert and orient x4, normal sensory and motor observed. Psychiatric: Cooperative Constitutional Vital Signs, click to edit/add: Last Vital Signs Temp 98.0 F 05/09/24 14:15 Pulse 67 05/09/24 14:15 Resp 18 05/09/24 14:15 BP 131/73 05/09/24 14:15 Pulse Ox 99 05/09/24 14:15 O2 Del Method Room Air 05/09/24 14:15 Course Vital Signs Vital signs: Vital Signs Temperature 98.0 F 05/09/24 14:15 Pulse Rate 67 05/09/24 14:15 Respiratory Rate 18 05/09/24 14:15 Blood Pressure 131/73 05/09/24 14:15 Pulse Oximetry 99 05/09/24 14:15 Oxygen Delivery Method Room Air 05/09/24 14:15 Temperature 98.0 F 05/09/24 14:15 Pulse Rate 67 05/09/24 14:15 Respiratory Rate 18 05/09/24 14:15 Blood Pressure 131/73 05/09/24 14:15 Pulse Oximetry 99 05/09/24 14:15 Oxygen Delivery Method Room Air 05/09/24 14:15 MDM - Extremity Injury (Lower) MDM Narrative Medical decision making narrative: Discussed patient's symptoms with localized pain, x-ray negative for fracture, discussed heel spur. Patient reports having similar symptoms in the past. We discussed conservative measures with Tylenol, ice ball stretch tennis ball stretch. Patient be given local podiatry follow-up for ongoing treatment. Patient will try to wear a gel heel cup. The patient is to followup with primary care physician/ podiatry in next 2-3 days or to return to the emergency department should any of the signs or symptoms worsen or new symptoms develop. Patient had questions answered. The patient agrees with the following Diagnosis and Treatment plan and the patient will be discharged home. Discharge Plan Discharge Stand Alone Forms: Portal Instructions Chief Complaint: Extremity Injury, Lower Clinical Impression: Plantar fasciitis of right foot Patient Disposition: Home, Self-Care Time of Disposition Decision: 15:21 Condition: Good Prescriptions / Home Meds: No Action albuterol sulfate 90 mcg/actuation HFA aerosol inhaler 2 inh inhalation Q4H PRN (Reason: shortness of breath or wheezing) Qty: 8.5 0RF [id number]-[id number] [Fioricet] 50-300-40 mg capsule 1 cap PO Q8H PRN (Reason: headache) Qty: 6 0RF Rx Instructions: DX: R51 hydrochlorothiazide 25 mg tablet 25 mg PO DAILY metoprolol tartrate 100 mg tablet 100 mg PO BID potassium chloride 10 mEq tablet extended release 30 meq PO BID alprazolam 0.25 mg tablet 0.25 mg PO DAILY PRN (Reason: anxiety) Print Language: Tunisian Instructions: Plantar Fasciitis (ED), Plantar Fasciitis Exercises (ED) Referrals: ALEXANDRA LOUIS DO [Primary Care Provider] - 1 week Manjeet Benitez DPM [Physician] - As soon as possible Discharge Date/Time: 05/09/24 15:39
[2024-05-09 15:39] VITALS: PULSE 87; O2SAT 99
== END 2024-05-09 15:39 | disposition home or self-care (01) ==
PROVIDERS: Emergency Provider Student in an Organized Health Care Education/Training Program; PCP Family Medicine
DX: M72.2 Plantar fascial fibromatosis (principal); F17.200 Nicotine dependence, unspecified, uncomplicated
CPT/HCPCS: 73630; 99283

== ENCOUNTER 2025-03-10 16:13 | Emergency (ER) | payer MEDICAID, SELFPAY ==
--- OUTSIDE RECORDS SUMMARY | 2024-07-16 07:45 | XMS_ITS ---
Author Organization [facility] in [place] Address [address] [place] [address] Care Team Providers Care Director Of Orthopedics Name Role Phone Jarrell Palafox Primary Care Provider Allergies Allergen (clinical drug ingredient) Drug/Non Drug Allergy documented on EMR Reaction Allergy Type Onset Date Status Aldactone Unknown Drug Allergy Active Furosemide Unknown Drug Allergy Active Losartan Potassium Unknown Drug Allergy Active Reason For Referral Reason R ankle pains Diagnosis 1 Pain in right ankle and joints of right foot (M25.571) Referral Organization [facility] Referring Provider First Name Jarrell Referring Provider Last Name Javy Referring Provider Speciality [facility] Referred Organization Podiatry [address] Referred Provider Rashad Mixon Referred Address [address],[place], [place],[address], Referred Provider Specialty Podiatry General Notes Jarrell Palafox 08:30:08 PM >please call pt for appt Referral Priority Routine REASON FOR VISIT -6 Month Follow Up- Medications Medication SIG (Take, Route, Frequency, Duration) Notes Start Date End Date Status ALPRAZolam 0.25 MG 1 tablet Orally daily prn for 30 days 01/16/2024 Active Anusol-HC 2.5 % 1 application Externally bid prn for 30 days 01/16/2024 Active Potassium Chloride ER 10 MEQ 3 tablets Orally bid Active hydroCHLOROthiazide 25 MG take 1 tablet by mouth every morning Active Metoprolol Tartrate 100 MG take 1 tablet by mouth twice a day with food 90 Active Vitamin D3 1.25 MG (27388 UT) 1 capsule Orally for 90 days 10/23/2021 Not-Taking Ciprofloxacin HCl 500 MG 1 tablet Orally daily for 3 days 07/12/2024 Active Fluconazole 100 MG 1 tablet Orally daily for 3 days 07/12/2024 Active Social History Tobacco Use: Social History Observation Description Date Details (start date - stop date) Current Smoker NA - NA Tobacco Use/Smoking Question Answer Notes Patient is a current smoker Problems Problem Type SNOMED Code ICD Code Onset Dates Problem Status W/U Status Risk Notes Problem 090471525 Body mass index [BMI] 32.0-32.9, adult (Z68.32) Active confirmed Problem 32607805 Hypertensive chronic kidney disease with stage 1 through stage 4 chronic kidney disease, or unspecified chronic kidney disease (I12.9) Active confirmed Problem 33805676 Dysphagia, unspecified (R13.10) Active confirmed Vital Signs Blood pressure systolic 140 mm Hg 07/16/20 24 Blood pressure diastolic 92 mm Hg 024 Heart Rate 61 /min 07/16/2024 Respiratory Rate 16 /min 07/16/2024 Height 63 in 07/16/2024 Weight 185.4 lbs 07/16/2024 BMI 32.84 kg/m2 07/16/2024 Oximetry 99 % 07/16/2024 Encounters Encounter Location Date Provider Diagnosis [address] [address] 07/16/2024 Jarrell Palafox Pain in right ankle and joints of right foot M25.571 ; Hypokalemia E87.6 ; Other obesity due to excess calories E66.09 ; Body mass index [BMI] 32.0-32.9, adult Z68.32 ; Obesity, class 1 E66.811 ; Chronic kidney disease, stage 3b N18.32 ; Hypertensive chronic kidney disease with stage 1 through stage 4 chronic kidney disease, or unspecified chronic kidney disease I12.9 ; Proteinuria, unspecified R80.9 and Dysphagia, unspecified R13.10 Assessments Encounter Date Diagnosis (ICD Code) Assessment Notes Treatment Notes Treatment Clinical Notes Section Notes 07/16/2024 Pain in right ankle and joints of right foot (ICD-10 - M25.571) refer to podiatry ?MRI needed ?inserts JOSUÉ wrap 07/16/2024 Hypokalemia (ICD-10 - E87.6) continue med monitor lab via neph diet d/w pt that we can change hctz to aldactone to help BP and help K 07/16/2024 Other obesity due to excess calories (ICD-10 - E66.09) diet/exercise 07/16/2024 Body mass index [BMI] 32.0-32.9, adult (ICD-10 - Z68.32) 07/16/2024 Obesity, class 1 (ICD-10 - E66.811) 07/16/2024 Chronic kidney disease, stage 3b (ICD-10 - N18.32) continue meds f/u nephrology for labs and appt and tx rec farxiga 07/16/2024 Hypertensive chronic kidney disease with stage 1 through stage 4 chronic kidney disease, or unspecified chronic kidney disease (ICD-10 - I12.9) bp check daily goal <130/80 diet/exercise monitor bmp 07/16/2024 Proteinuria, unspecified (ICD-10 - R80.9) monitor rec farxiga hold on JOSUÉ/ARB due to CKD 07/16/2024 Dysphagia, unspecified (ICD-10 - R13.10) diet rec EGD to r/o stricture - pt to hold off and call if wishes Plan Of Treatment Medication Medication Name Sig Start Date Stop Date Notes Potassium Chloride ER 10 MEQ 3 tablets Orally bid hydroCHLOROthiazide 25 MG take 1 tablet by mouth every morning Metoprolol Tartrate 100 MG take 1 tablet by mouth twice a day with food 90 Treatment Notes Assessment Notes Pain in right ankle and joints of right foot refer to podiatry ?MRI needed ?inserts JOSUÉ wrap Hypokalemia continue med monitor lab via neph diet d/w pt that we can change hctz to aldactone to help BP and help K Other obesity due to excess calories t/exercise Chronic kidney disease, stage 3b continue meds f/u nephrology for labs and appt and tx rec farxiga Hypertensive chronic kidney disease with stage 1 through stage 4 chronic kidney disease, or unspecified chronic kidney disease bp check daily goal <130/80 diet/exercise monitor bmp Proteinuria, unspecified monitor rec farxiga hold on JOSUÉ/ARB due to CKD Dysphagia, unspecified diet rec EGD to r/o stricture - pt to hold off and call if wishes Referrals Referral Date Details 07/18/2024 07/18/2024, R ankle pains, Rashad Mixon, [address], [place], [address], [email or web address], Next Appt Details Provider Name:Vishnu Jimenez, 11/28/2025 02:00:00 PM, [address], [place], [address], Progress Notes * Hilario BARGERDOB:1970 (54 yo F)Acc No.[id number]:07/16/2024 Established Patient: Hilario BOYCE Provider: Jillian Palafox DO :1970 A ge:54 Y S ex:Female Date:07/16/2024 Address:[address] [place], [place] [id number] Check In:10:51 AM ESTCheck O ut:11:33 AM EST Subjective: * Chief Complaints: * - 6 Month Follow Up- * HPI: G eneral: Patient presents today for 6 month follow up. Patient states she is having issues with her ankle still and did go to the ER for the pain and had xray. She states she has a burning sensation in her ankle as well and at the ER they told her it could be plantar faciitis but the pain is not on the bottom of her foot.-MV seeing nephrology q6 months - 05/2024 note reviewed 05/2024 labs reviewed - cbc/mg normal, uric acid 6.3, urine microalbumin elevated, Cr 1.57, GFR 39, K 3.0, UA +WBC pt called urology and was told she had a ?mild UTI she called 4 days ago and told them she had UTI s/s - dysuria not sure if meds called in not checking BP at home no CP/SOB/dizzy/palp tolerating all meds without side effects no GERD on/off dysphagia - worse in the past month 04/2024 R ankle xray in ER - negative dx: plantar fascitis after ER visit pt hit her R lateral ankle on something occ stinging in achilles area +R ankle pain for several months pt had pain and felt a pop a few months ago painful with walking - R lateral ankle and heel lateral R ankle swelling noted L lateral ankle with chronic soft tissue swelling R lateral ankle with swelling only since 04/2024 . * ROS: G eneral/Constitutional: Significant change in weight d enies. E xercise Intolerance d enies. N ight sweats d enies. F ever d enies. E yes: Dry eyes D enies. V ision changes d enies. ? E NMT: Sore Throat d enies. N ose Bleeds d enies. D ifficulty hearing d enies. E ar pain d enies. N ose/sinus problems d enies. S noring d enies. B leeding gums d enies. D ry mouth d enies. M outh ulcers denies. O ral abnormalities d enies. T eeth problems d enies. C ardiovascular: Shortness of Breath w/Walking d enies. S hortness of Breath w/lying flat d enies. A rm pain on exertion d enies. C hest pain d enies.?Heart murmur d enies. P alpitations d enies. R espiratory: Coughing up blood d enies. C ough d enies. S hortness of breath d enies. W heezing d enies. G astrointestinal: Change in appetite d enies. V omiting blood d enies. A bdominal pain d enies. C onstipation d enies. D iarrhea d enies. V omiting d enies. G enitourinary: Dysuria/Increased Frequency d enies. H ematuria d enies. I ncontinence d enies. D ifficulty urinating d enies. M usculoskeletal: Swelling in the extremities a dmits. A rthralgias/joint pain A dmits. B ack pain d enies. W eakness of muscles d enies. M uscle aches a dmits. S kin: Jaundice D enies. M ole(s) d enies. R brianne d enies. N eurologic: Dizziness d enies. L oss of consciousness d enies.?Numbness d enies. W eakness d enies. H eadache d enies. S eizures d enies. P sychiatric: Alcohol abuse d enies. F eeling safe in relationship?denies. D epression d enies. A nxiety d enies. S leep Disturbances d enies. E ndocrine: Fatigue d enies. H ematologic/Lymphatic: Swollen Glands d enies. B ruising d enies. ? A llergy/Immunology: Runny nose d enies. S inus pressure d enies. F requent sneezing d enies. H gopal d enies. I tching d enies. * Active Problem List Z72.0 Tobacco use Modified On:06/25/2022U Status:confirmed N26.1 Atrophic kidney Modified On:06/25/2022U Status:confirmed N28.1 Renal cyst Modified On:06/25/2022 Status:confirmed E87.6 Hypokalemia Modified On:10/17/2022U Status:confirmed D89.2 Paraproteinemia Modified On:10/17/2022U Status:confirmed E55.9 Vitamin D deficiency Modified On:01/21/2023U Status:confirmed N18.31 CKD stage G3a/A2, GF R 45-59 and albumin creatinine ratio 30-299 mg/g Modified On:06/25/2022U Status:confirmed E78.5 Dyslipidemia Modified On:10/17/2022U Status:confirmed Z68.34 BMI 34.0-34.9,adult Modified On:10/17/2022U Status:confirmed E66.9 Obesity (BMI 30.0-34 .9) Modified On:10/17/2022U Status:confirmed I10 Essential (primary) hypertension Modified On:10/17/2022 Status:confirmed N18.31 Stage 3a chronic kid keven disease Modified On:10/17/2022 Status:confirmed F41.1 MALA (generalized anx iety disorder) Modified On:10/17/2022 Status:confirmed N18.2 CKD (chronic kidney disease) stage 2, GFR 60-89 ml/min Modified On:01/21/2023 Status:confirmed I10 HTN (hypertension) Modified On:01/21/2023 Status:confirmed F41.1 Generalized anxiety disorder Modified On:01/16/2024 Status:confirmed E66.09 Other obesity due to excess calories Modified On:01/16/2024 Status:confirmed Z68.33 Body mass index [BMI ] 33.0-33.9, adult Modified On:01/16/2024 Status:confirmed N18.32 Chronic kidney disea se, stage 3b Modified On:05/31/2024 Status:confirmed Z68.32 Body mass index [BMI ] 32.0-32.9, adult Modified On:07/18/2024 Status:confirmed I12.9 Hypertensive chronic kidney disease with stage 1 through stage 4 chronic kidney disease, or unspecified chronic kidney disease Modified On:07/18/2024 Status:confirmed R13.10 Dysphagia, unspecifi ed Modified On:07/18/2024 Status:confirmed * Medical History: * Surgical History: c esarean section hysterectomy with 1 ooph eye surgery oral surgery * Hospitalization/Major Diagno stic Procedure: N o Hospitalization History. * Family History: F ather: , MVA. M other: alive, diagnosed with Diabetes mellitus without mention of complication, type II or unspecified type, not stated as uncontrolled. * Social History: T obacco Use: T obacco Use/Smoking P atient is a c urrent smoker H ousehold: H ousehold M arital status: m arried * Medications: T akingALPRAZolam 0.25 MG Tablet 1 tablet Orally daily prn Anusol- HC(Hydrocortisone (Perianal)) 2.5 % Cream 1 application Externally bid prn Ciprofloxacin HCl 500 MG Tablet 1 tablet Orally daily Fluconazole 100 MG Tablet 1 tablet Orally daily hydroCHLOROthiazide 25 MG Tablet take 1 tablet by mouth every morning Metoprolol Tartrate 100 MG Tablet take 1 tablet by mouth twice a day with food 90 Potassium Chloride ER 10 MEQ Tablet Extended Release 3 tablets Orally bid Taking ALPRAZolam 0.25 MG Tablet 1 tablet Orally daily prn Taking Anusol-HC(Hydrocortisone (Perianal)) 2.5 % Cream 1 application Externally bid prn Taking Ciprofloxacin HCl 500 MG Tablet 1 tablet Orally daily Taking Fluconazole 100 MG Tablet 1 tablet Orally daily Taking hydroCHLOROthiazide 25 MG Tablet take 1 tablet by mouth every morning Taking Metoprolol Tartrate 100 MG Tablet take 1 tablet by mouth twice a day with food 90 Taking Potassium Chloride ER 10 MEQ Tablet Extended Release 3 tablets Orally bid Not-Taking/PRNVitamin D3 1.25 MG (14397 UT) Capsule 1 capsule Orally Medication List reviewed and reconciled with the patientNot-Taking/PRN Vitamin D3 1.25 MG (47560 UT) Capsule 1 capsule Orally Medication List reviewed and reconciled with the patient * Allergies: A ldactoneLosartan PotassiumFurosemideno[Allergies Verified] Objective: * Vitals: W t:185.4lbs, Ht: 63 in, BP:140/92mm Hg, HR:61/min, RR:16/min, BMI:32.84Index, Oxygen sat %:99%, Ht-cm: 160.02 cm, Wt-k.1 kg. * Examination: G eneral Examination: GENERAL APPEARANCE: h ealthy Appearing , well nourished , well developed Level of distress: NAD, + limp, obese. ENMT: E ACs clear, TMs clear, no hearing loss, no lesions on external ears, nares patent, nasal passages clear, no sinus tenderness, no nasal discharge, no mouth or lip ulcers, no bleeding gums, moist mucous membranes, no erythema, no exudates. HEAD: n ormocephalic, atraumatic. EYES: n on-injected, no discharge, no pallor, PERRLA , EOMI, s clera non-icteric, peripheral vision grossly intact, acuity grossly intact. LUNGS: n o dyspnea, breath sounds normal , good air movement, CTA except as noted, no wheezing, no rales/crackles, no rhonchi. CARDIO: n ot displaced, RRR, S1, S2 normal , no murmurs, rubs, gallops , no carotid bruits, normal throughout. ABDOMEN: n ormal bowel sounds , soft, non tender, not distended, no guarding, no rebound tenderness, no masses, no CVA tenderness, liver non tender, no hepatomegaly. BACK: n ormal curvature. MUSCULOSKELETAL n ormal motor strength, normal tone, +mild R ankle pain with ROM, no bony abnormalities, no contractures, no malalignment, +b/l lateral malleolus edema, +mild pain with palpation plantar R heel and posterior R medial/lateral malleolus. SKIN: n o rash, no lesions, no ulcer, no abnormal nevi, no induration, no nodules, good turgor, no jaundice, +b/l toenails with thick/fungal nails. NEUROLOGIC: c ranial nerves grossly intact, sensation grossly intact, no tremor. PSYCH: j udgement and insight good, active and alert, normal mood, normal affect. NECK/THYROID: N elizabeth supple, trachea midline, no masses, FROM, no cervical LAD, no enlargement, non-tender, no nodules. Assessment: * Assessment: 1. P ain in right ankle and joints of right foot - M25.571 (Primary) 2 . H ypokalemia - E87.6 3 . O ther obesity due to excess calories - E66.09 4 . B opal mass index [BMI] 32.0-32.9, adult - Z68.32 5 . O besity, class 1 - E66.811 6 . C hronic kidney disease, stage 3b - N18.32 7 . H ypertensive chronic kidney disease with stage 1 through stage 4 chronic kidney disease, or unspecified chronic kidney disease - I12.9 8 . P roteinuria, unspecified - R80.9 9 . D ysphagia, unspecified - R13.10 Plan: * Treatment: 2. H ypokalemia Continue Potassium Chloride ER Tablet Extended Release, 10 MEQ, 3 tablets, Orally, bid. Notes: continue med monitor lab via neph diet d/w pt that we can change hctz to aldactone to help BP and help K 3. O ther obesity due to excess calories Notes: diet/exercise 4. C hronic kidney disease, stage 3b Notes: continue meds f/u nephrology for labs and appt and tx rec farxiga 5. H ypertensive chronic kidney disease with stage 1 through stage 4 chronic kidney disease, or unspecified chronic kidney disease Continue Metoprolol Tartrate Tablet, 100 MG, take 1 tablet by mouth twice a day with food 90; C ontinue hydroCHLOROthiazide Tablet, 25 MG, take 1 tablet by mouth every morning. Notes: bp check daily goal <130/80 diet/exercise monitor bmp 6. P roteinuria, unspecified Notes: monitor rec farxiga hold on JOSUÉ/ARB due to CKD 7. D ysphagia, unspecified Notes: diet rec EGD to r/o stricture - pt to hold off and call if wishes * Procedure Codes: * * Sign off status: Completed Visit Status: C HK (Check Out) true * Provider: Jillian Palafox DO Date: Generated for Frida diaz/Teresa/Westonitting on: 0 03/10/2025 04:17 PM EDT History and Physical Notes * Examination Category Sub-Category Detail Notes Category Not es General Examination GENERAL APPEARANCE: healthy Appearing , well nourished , well developed Level of distress: NAD, +limp, obese EYES: non-injected, no dis charge, no pallor, PERRLA , EOMI, sclera non-icteric, peripheral vision grossly intact, acuity grossly intact CARDIO: not displaced, RRR, S1, S2 normal , no murmurs, rubs, gallops , no carotid bruits, normal throughout LUNGS: no dyspnea, breath s ounds normal , good air movement, CTA except as noted, no wheezing, no rales/crackles, no rhonchi ABDOMEN: normal bowel sounds , soft, non tender, not distended, no guarding, no rebound tenderness, no masses, no CVA tenderness, liver non tender, no hepatomegaly NEUROLOGIC: cranial nerves gross ly intact, sensation grossly intact, no tremor SKIN: no rash, no lesions, no ulcer, no abnormal nevi, no induration, no nodules, good turgor, no jaundice, +b/l toenails with thick/fungal nails BACK: normal curvature MUSCULOSKELETAL: normal motor strengt h, normal tone, +mild R ankle pain with ROM, no bony abnormalities, no contractures, no malalignment, +b/l lateral malleolus edema, +mild pain with palpation plantar R heel and posterior R medial/lateral malleolus PSYCH: judgement and insigh t good, active and alert, normal mood, normal affect ENMT: EACs clear, TMs iván r, no hearing loss, no lesions on external ears, nares patent, nasal passages clear, no sinus tenderness, no nasal discharge, no mouth or lip ulcers, no bleeding gums, moist mucous membranes, no erythema, no exudates HEAD: normocephalic, atrau matic NECK/THYROID: Neck supple, trachea midline, no masses, FROM, no cervical LAD, no enlargement, non-tender, no nodules Consultation Request Notes Referral Date Referring Provider Referred Provider Not es 07/18/2024 Jarrell Palafox Bruce R ankle pa ins
--- OUTSIDE RECORDS SUMMARY | 2025-03-10 16:17 | XMS_ITS | Clinical Summary ---
Author Organization [employer] Address [id number] [address] [place] [address] Care Team Providers Care Sausage Mixer Name Role Phone Jarrell Palafox DO Primary Care Provider Allergies No known active allergies Medications ALPRAZolam (XANAX) 0.25 mg tablet alprazolam 0.25 mg tablet take 1 tablet by mouth once daily Active hydroCHLOROthia zide (HYDRODIURIL) 50 mg tablet 25 mg daily. 0 9 Active metoprolol tartrate (LOPRESSOR) 100 mg tablet Take 100 mg by mouth 2 (two) times a day. Active potassium chloride (K-DUR,KLOR-CON ) 10 MEQ CR tablet Take 20 mEq by mouth 3 (three) times a day. Active Active Problems Problem Noted Date Diagnosed Date Hypokalemia 12/05/2020 MGUS (monoclonal gammopathy of unknown significa nce) 06/25/2019 Social History Tobacco Use Types Packs/Day Years Used Date Smoking Tobacco: Every Day Cigarettes 1 30 Smokeless Tobacco: Never Alcohol Use Standard Drinks/Week Comments Yes 0 (1 standard drink = 0.6 oz pur e alcohol) Childcare Answer Date Recorded Childcare Unknown 03/03/2019 Employment Answer Date Recorded Employment Unknown 03/03/2019 Purpose - Life Answer Date Recorded Purpose and direction in life Unknown Comments No Sex and Gender Information Value Date Recorded Sex Assigned at Not on file Legal Sex Female 11:40 AM EDT Gender Identity Not on file Sexual Orientation Not on file Last Filed Vital Signs Vital Sign Reading Time Taken Comments Blood Pressure 121/73 02/01/2022 2:44 PM EDT Pulse 72 02/01/2022 2:44 PM EDT Temperature 36.6 C (97.8 F) 02/01/2022 2:44 PM EDT Respiratory Rate 16 02/01/2022 2:44 PM EDT Oxygen Saturation 97% 02/01/2022 2:44 PM EDT Inhaled Oxygen Concentration - - Weight 88.9 kg (196 lb) 02/01/2022 2:44 PM EDT Height 160 cm (5' 3 ) 02/01/2022 2:44 PM EDT Body Mass Index 34.72 02/01/2022 2:44 PM EDT Plan of Treatment Health Maintenance Due Date Last Done Comments Depression Screening 1983 Tobacco Screening 1983 Adult BMI Screening 1989 DTaP,Tdap and Td Vaccines (1 - Tdap) 1990 Zoster (Shingles) Vaccine (1 of 2) 1990 Influenza Vaccine 05/23/2025 Medical Devices Not on file Insurance [employer] Care Teams Sausage Mixer Relationship Specialty Start Date End Date Jarrell Palafox DO [address] [place] [address] PCP - General Family Medicine 06/01/19
--- OUTSIDE RECORDS SUMMARY | 2025-03-10 16:17 | XMS_ITS | Clinical Summary ---
Author Organization [facility] Address [address] [facility] [place] [address] Care Team Providers Care Lard Refiner Name Role Phone Unavailable Primary Care Provider Unavailabl e Source Comments The following information is NOT included in Care Everywhere downloads:Psychiatric notes, ECG results, Cardiac Rehab notes, Pulmonary Function notes, data from [employer] (includes but not limited toPregnancy data,audiograms, eye exams, pre-surgical evaluation notes, well-child exam data).[facility] Social History Tobacco Use Types Packs/Day Years Used Date Smoking Tobacco: Never Assessed Comments Unknown Sex and Gender Information Value Date Recorded Sex Assigned at Not on file Legal Sex Female 3:44 PM EDT Gender Identity Not on file Sexual Orientation Not on file Plan of Treatment Health Maintenance Due Date Last Done Comments Colonoscopy 1971 HIV Test 1986 Hepatitis C Antibody 1989 Tdap Booster 1989 Hepatitis A (HAV) Vaccine (optional start 19+ years) 0 1990 Hepatitis B (HBV) Vaccine (1 of 3 - 19+ 3-dose series) 1990 Tetanus (Td or Tdap) Booster 1990 Pap Smear 1992 Mammography 2011 CRC Screening 2016 Cholesterol 2016 Cologuard (Stool DNA) 2016 FIT 2016 Pneumococcal Vaccine(s) (50+ yrs) (1 of 1 - PCV) 05/21 Shingles (RZV) Vaccine (1 of 2) 2021 COVID-19 Vaccine (1 - 2023-25 season) 2024
[2025-03-10 16:18] VITALS: BP 156/88; PULSE 60; TEMP 36.3; O2SAT 100; BMI 32.9
--- OUTSIDE RECORDS SUMMARY | 2025-03-10 16:18 | XMS_ITS | Patient Health Record ---
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 Name Role Phone Lorin Parrish Unavailable [phone] Allergies No Known Allergies Reason For Referral No Information Medications Medication SIG (Take, Route, Frequency, Duration) Notes Start Date End Date Status Furosemide 20 MG take 1 tablet by mouth once daily Oral for 30 Days Not-Taking Metoprolol Tartrate 100 MG Oral for 30 Days Active Clindamycin HCl 300 MG take 1 capsule by mouth three times a day for 10 days Oral for 10 Days Not-Taking Potassium Chloride ER 10 MEQ Oral for 30 Days Active Losartan Potassium 25 MG take 1 tablet b y mouth once daily Oral for 90 Days Not-Taking Amoxicillin 500 MG 1 capsule Orally every 8 hrs for 7 days 08/05/2022 Active hydroCHLOROthiazide 25 MG 1 tablet in th e morning Orally Once a day for 30 day(s) 04/24/2022 Active Xanax 0.25 MG 1 tablet Orally Twice a day 04/24/2022 Active Social History Sex Assigned At : Social History Observation Description Sex Assigned At Female Problems Problem Type SNOMED Code ICD Code Onset Dates Problem Status W/U Status Risk Notes Problem Left lower quadrant pain (319322200) Left lower quadrant pain (R10.32) Active confirmed Comment:dull ache throughout day, pt denies constipation pt declines to do ultrasound at this time, will call if pain worsens, Problem Pre-procedure evaluation check (357868045) Preop testing (Z01.818) Active confirmed Problem Vaginal discharge (571243888) Vaginal discharge (N89.8) Active confirmed Problem Gynecological examination normal (090276000697209) Well woman exam with routine gynecological exam (Z01.419) Active confirmed Problem Menometrorrhagia (458055692) Menometrorrhagia (N92.1) Active confirmed Comment:US done on 05/19/13 demonstrated enlarged uterus 11x6.1x7.8 cm, endometrial stripe 31 mm, homogeneously echogenic, small complex cyst in right ovary 2 cm, left ovary has small simple cyst 2.2 cm. Pt has had prolonged history of dysmenorrhea, pelvic pain, suspected endometriosis. Will consider hysterectomy vs hormonal management. Endomerial biopsy done, results pending. Desires definitive treatment, wants hysterectomy, consented for TLH, ovarian conservation. IF biopsy demonstrates hyperplasia, pt to follow up with fiction and nonfiction author onc,Story:mens es q28 days, in february started having heavy bleeding with clots, for 3-4 days, then spotting, then normal bleed, then heavy bleeding etc. Pt finally stopped bleeding 3 days ago. NO similar episodes in past, Problem Right flank pain (487817755) Right flank pain (R10.9) Active confirmed Comment:pt to call if pain worsens, or if has fever, Problem Nephrolithiasis (97621758) Nephrolithiasis (N20.0) Active confirmed Comment:obstru cting stone determined on cystoscopy, stent placed, Problem Smoker (71722666) Smoker (Z72.0) Active confirm ed Comment:encour aged cessation, Problem Gynecologic examination (87869341) Visit for gynecologic examination (Z01.419) Active confirmed Comment:last done 06/2013, Problem Breasts asymmetrical (746618897) Asymmetrical breasts (N64.89) Active confirmed Comment:lef t breast much smaller than right. Pt states since puberty, no changes., Problem Pain in female pelvis (333866218) Pelvic pain in female (R10.2) Active confirmed Comment:pt states has had for years, worse with menses. US demonstrated small complex cyst in left ovary, simple cyst in right ovary. Pt did have generalized tenderness on exam that she states has always had., Problem Endometrium thickened (948255973) Thickened endometrium (R93.89) Active confirmed Comment:US done on 05/19/13 demonstrated enlarged uterus 11x6.1x7.8 cm, endometrial stripe 31 mm, homogeneously echogenic, small complex cyst in right ovary 2 cm, left ovary has small simple cyst 2.2 cm. endometrial biopsy, Problem Postoperative state (71088210) Post-operative state (Z98.890) Active confirmed Comment:s/p TLH, right salpingectomy, Problem History of nephrolithiasis (880301017) History of nephrolithiasis (Z87.442) Active confirmed Comment:stent removed by Dr bullock, pt has follow up appointment, Problem Enlarged uterus (445231020) Enlarged uterus (N85.2) Active confirmed Comment:on ultrasound 11x6.1x7.8 cm,, Problem Breast lump (49439796) Mass of multiple sites of left breast (N63) Active confirmed Comment:cluste r of masses felt at 9 oclock, single mass palpated at 5 oclock, tender to palpation. Left breast much smaller than right breast, pt has never had mammogram, Plan Of Treatment No Information Insurance Providers Payer Name Payer Address Payer Phone Subscriber Number Group Number Insured Name Patient Relationship to Insured Coverage Start Date Coverage End Date [employer] [facility] [address] [place] [address] [id number] Librado, Kasia Self - patient is the insured 3 [employer] [facility] [place] [address] [place], [place] [id number] Mccracken, Kasia Self - patient is the insured 3 Medical (General) History Medical History History ICD Code Anxiety, ProblemStatus: Active, , Hypertension, ProblemStatus: Active, , Hypokalemia, ProblemStatus: Active, , Surgical History Surgery Date(Month/Year) Tubal Ligation, ProblemStatus: Active, Cosmetic Surgery, COMMENTS: Excess eye-lid skin removed., ProblemStatus: Active, Section - 1, ProblemStatus: Act jahaira, Hysterectomy; Total, COMMENTS: @[facility], Pro blemStatus: Active, Date: 11/05/2013
--- OUTSIDE RECORDS SUMMARY | 2025-03-10 16:18 | XMS_ITS | Patient Health Record ---
Author Organization [facility] in [place] Address [address] [place] [address] Care Team Providers Care Bean Dumper Name Role Phone Palafox Jarrell Primary Care Provider Vishnu Jimenez [phone] Allergies Allergen (clinical drug ingredient) Drug/Non Drug Allergy documented on EMR Reaction Allergy Type Onset Date Status spironolactone Aldactone Unknown Drug Allergy Ac tive furosemide Furosemide Unknown Drug Allergy Activ e losartan Losartan Potassium Unknown Drug Allergy Active Results Component Value Reference Range Notes CBC (COMPLETE BLOOD COUNT) * Reviewed date:03/18/2024 05:28:37 PM Interpretation: Performing Lab:[facility], [place]. [address] PH:[phone] Notes/Report: WBC COUNT 5.8 4.0-11.0 X10E9/L RBC COUNT 4.64 3.80-5.20 X10E12/L HEMOGLOBIN 14.7 11.7-15.5 g/dL HEMATOCRIT 41.1 35-47 % MCV 89 80-100 fL MCH 31.7 27-34 pg MCHC 35.9 32-36 g/dL RDW 14.3 11.5-15.0 % PLATELET COUNT 214 150-450 X10E9/L MPV 9.1 7-12 fL PERFORMED AT [facility] [address],[place] [address] MICROALBUMIN WITH RATIO Reviewed date:03/18/2024 05:28:30 PM Interpretation: Performing Lab:[facility] [address] [address] PH:[phone] Notes/Report: MICROALBUMIN, URINE 4.5 0.0-1.9 mg/dL URINE CREAT 132.58 ALB/CREAT RATIO 33.9 0.0-30.0 mg/g creat PERFO RMED AT [address] [address] URINALYSIS Reviewed date:03/18/2024 05:28:35 PM Interpretation: Performing Lab:[facility] [address] [place] [address], [address] [address] PH:[phone] Notes/Report: COLOR YELLOW YELLOW TURBIDITY HAZY CLEAR SPECIFIC GRAVITY 1.017 1.003-1.035 NITRITE Positive Negative PH,URINE 6.5 5.0-8.5 LEUKOCYTE ESTERASE Large Negative PROTEIN 30 Negative mg/dL GLUCOSE (URINE) Negative Negative mg/dL KETONES (URINE) Negative Negative mg/dL UROBILINOGEN <1.1 <1.1 eu/dL BILIRUBIN (URINE) Negative Negative BLOOD/HGB Trace Negative MUCOUS PRESENT NONE R.B.CELLS 3 0-5 /hpf SQUAMOUS EPITHELIUM 1 0-5 /hpf W.B.CELLS 393 0-5 /hpf PERFORMED AT [address] [address] BMP w/GFR Reviewed date:05/31/2024 02:56:00 PM Interpretation: Performing Lab:[facility] [address] [place] [address], [address] [address] PH:[phone] Notes/Report: SODIUM 141 134-146 mmol/L POTASSIUM 3.0 3.5-5.0 mmol/L CHLORIDE 104 98-109 mmol/L CARBON DIOXIDE 26 22-32 mmol/L ANION GAP 11 5-15 mmol/L BLOOD UREA NITROGEN 14 5-23 mg/dL CREATININE 1.57 0.40-1.00 mg/dL METHOD TRACE ABLE TO IDMS STANDARD GLUCOSE 102 65-99 mg/dL CALCIUM 9.2 8.5-10.5 mg/dL eGFR (CKD-EPI) NON-RACE DEPENDENT 39 >59 ml/min/1.73sq.m Reported eGFR is based on the CKD-EPI 2020 equation that does not use a race coefficient. PERFORMED AT [address] [address] CBC (COMPLETE BLOOD COUNT) * Reviewed date:05/31/2024 02:56:17 PM Interpretation: Performing Lab:[facility] [address] [place], [place] [address]., [address] [place] [address]. [address] PH:[phone] Notes/Report: WBC COUNT 6.6 4.0-11.0 X10E9/L RBC COUNT 4.61 3.80-5.20 X10E12/L HEMOGLOBIN 13.8 11.7-15.5 g/dL HEMATOCRIT 41.5 35-47 % MCV 90 80-100 fL MCH 30.0 27-34 pg MCHC 33.3 32-36 g/dL RDW 14.6 11.5-15.0 % PLATELET COUNT 238 150-450 X10E9/L MPV 8.7 7-12 fL PERFORMED AT [address] [place] [address] ALBUMIN Reviewed date:05/31/2024 02:56:05 PM Interpretation: Performing Lab:[facility] [address] [place] [address]., [address] [address] PH:[phone] Notes/Report: ALBUMIN 3.7 3.2-5.3 g/dL PERFORMED AT [address] [address] MAGNESIUM Reviewed date:05/31/2024 02:55:56 PM Interpretation: Performing Lab:[facility] [address] [place], [place] [address]., [address] [place] [address]. [address] PH:[phone] Notes/Report: MAGNESIUM 2.2 1.8-2.6 mg/dL PERFORMED AT [address] [address] PHOSPHORUS Reviewed date:05/31/2024 02:55:52 PM Interpretation: Performing Lab:[facility] [address] [place], [place] [address]., [address] [address] PH:[phone] Notes/Report: PHOSPHORUS 3.6 2.4-4.9 mg/dL PERFORMED AT [address],[place] [address] MICROALBUMIN WITH RATIO Reviewed date:05/31/2024 02:55:46 PM Interpretation: Performing Lab:[facility] [address] [place] [address]., [address], [place]. [address] PH:[phone] Notes/Report: MICROALBUMIN, URINE 4.8 0.0-1.9 mg/dL URINE CREAT 123.25 ALB/CREAT RATIO 38.9 0.0-30.0 mg/g creat PERFO RMED AT [address] [place] [address] URIC ACID Reviewed date:05/31/2024 02:55:49 PM Interpretation: Performing Lab:[facility] [address] [place] [address], SUITE [facility], [place]. [address] PH:[phone] Notes/Report: URIC ACID 6.3 2.6-7.2 mg/dL PERFORMED AT [address],[place] [address] URINALYSIS Reviewed date:05/31/2024 02:56:12 PM Interpretation: Performing Lab:[facility] [address] [place] [address], SUITE [facility], [place]. [address] PH:[phone] Notes/Report: COLOR YELLOW YELLOW TURBIDITY HAZY CLEAR SPECIFIC GRAVITY 1.015 1.003-1.035 NITRITE Positive Negative PH,URINE 6.0 5.0-8.5 LEUKOCYTE ESTERASE Large Negative PROTEIN 30 Negative mg/dL GLUCOSE (URINE) Negative Negative mg/dL KETONES (URINE) Negative Negative mg/dL UROBILINOGEN <1.1 <1.1 eu/dL BILIRUBIN (URINE) Negative Negative BLOOD/HGB Trace Negative MUCOUS PRESENT NONE R.B.CELLS 6 0-5 /hpf SQUAMOUS EPITHELIUM 1 0-5 /hpf W.B.CELLS 381 0-5 /hpf PERFORMED AT [address],[place] [address] CBC (COMPLETE BLOOD COUNT) * Reviewed date:11/29/2024 03:41:20 PM Interpretation: Performing Lab:[facility] [address] [place] [address]., [address] [place] [address]. [address] PH:[phone] Notes/Report: WBC COUNT 6.4 4.0-11.0 X10E9/L RBC COUNT 4.98 3.80-5.20 X10E12/L HEMOGLOBIN 15.0 11.7-15.5 g/dL HEMATOCRIT 45.2 35-47 % MCV 91 80-100 fL MCH 30.1 27-34 pg MCHC 33.1 32-36 g/dL RDW 14.4 11.5-15.0 % PLATELET COUNT 233 150-450 X10E9/L MPV 8.6 7-12 fL PERFORMED AT [address] [address] [facility] Reviewed date:11/29/2024 03:40:04 PM Interpretation: Performing Lab:[facility] [address] [place] [address]., [address] [address] PH:[phone] Notes/Report: PTH INTACT 51 12-88 pg/mL PERFORMED AT [address] [address] VITAMIN D 25 HYD TOT Reviewed date:11/29/2024 03:40:00 PM Interpretation: Performing Lab:[facility] [address] [place] [address], [address] [address] PH:[phone] Notes/Report: VITAMIN D 25 HYD TOT 22.1 30-100 ng/mL Vitamin D status 25 [place] Vitamin D - Deficiency <20 ng/mL Insufficiency 20-29 ng/mL Sufficiency 30-100 ng/mL Toxicity >100 ng/mL NOTE: A pediatric reference range has not been established by the intern brand of this kit. The [employer] recommends a Vitamin D level of = or >20ng/mL in infants and children. PERFORMED AT [address] [place] [address] Cologuard Reviewed date:01/17/2025 08:31:28 AM Interpretation: Performing Lab: Notes/Report: Cologuard Result Cancelled - Order Not Applicable URINALYSIS Reviewed date:11/29/2024 03:39:58 PM Interpretation: Performing Lab:[facility] [address] [place], [place] [address]., [address] [place] [address]. [address] PH:[phone] Notes/Report: COLOR YELLOW YELLOW TURBIDITY CLEAR CLEAR SPECIFIC GRAVITY 1.017 1.003-1.035 NITRITE Negative Negative PH,URINE 6.5 5.0-8.5 LEUKOCYTE ESTERASE MODERATE Negative PROTEIN Trace Negative mg/dL GLUCOSE (URINE) Negative Negative mg/dL KETONES (URINE) Negative Negative mg/dL UROBILINOGEN <1.1 <1.1 eu/dL BILIRUBIN (URINE) Negative Negative BLOOD/HGB Negative Negative MUCOUS PRESENT NONE R.B.CELLS 1 0-5 /hpf SQUAMOUS EPITHELIUM 1 0-5 /hpf W.B.CELLS 57 0-5 /hpf PERFORMED AT [address] [place] [address] URIC ACID Reviewed date:11/29/2024 03:40:07 PM Interpretation: Performing Lab:[facility]), [address] [place] [address], [address] [address] PH:[phone] Notes/Report: URIC ACID 5.9 2.6-7.2 mg/dL PERFORMED AT [address] [address] MICROALBUMIN WITH RATIO Reviewed date:11/29/2024 03:41:16 PM Interpretation: Performing Lab:[facility]), [address] [place] [address]., [address] [place] [address]. [address] PH:[phone] Notes/Report: MICROALBUMIN, URINE 2.3 0.0-1.9 mg/dL URINE CREAT 70.77 ALB/CREAT RATIO 32.5 0.0-30.0 mg/g creat PERFO RMED AT [address] [address] PHOSPHORUS Reviewed date:11/29/2024 03:40:12 PM Interpretation: Performing Lab:[facility]), [facility] [address], [place]. [address] PH:[phone] Notes/Report: PHOSPHORUS 3.7 2.4-4.9 mg/dL PERFORMED AT [address],[place] [address] MAGNESIUM Reviewed date:11/29/2024 03:40:19 PM Interpretation: Performing Lab:[facility]), [facility] [address], [place]. [address] PH:[phone] Notes/Report: MAGNESIUM 2.4 1.8-2.6 mg/dL PERFORMED AT [address] [place] [address] ALBUMIN Reviewed date:11/29/2024 03:41:12 PM Interpretation: Performing Lab:[facility]), [facility] [address] [facility], [place]. [address] PH:[phone] Notes/Report: ALBUMIN 4.0 3.2-5.3 g/dL PERFORMED AT [address] [facility],[place] [address] BMP w/GFR Reviewed date:11/29/2024 03:40:33 PM Interpretation: Performing Lab:[facility]), [facility] [address] [facility], [place]. [address] PH:[phone] Notes/Report: SODIUM 142 134-146 mmol/L POTASSIUM 3.7 3.5-5.0 mmol/L CHLORIDE 103 98-109 mmol/L CARBON DIOXIDE 29 22-32 mmol/L ANION GAP 10 5-15 mmol/L BLOOD UREA NITROGEN 15 5-23 mg/dL CREATININE 1.58 0.40-1.00 mg/dL METHOD TRACE ABLE TO IDMS STANDARD GLUCOSE 101 65-99 mg/dL CALCIUM 9.5 8.5-10.5 mg/dL eGFR (CKD-EPI) NON-RACE DEPENDENT 39 >59 ml/min/1.73sq.m Reported eGFR is based on the CKD-EPI 2020 equation that does not use a race coefficient. PERFORMED AT [address] [facility],[place] [address] VITAMIN D 25 HYD TOT Reviewed date:03/18/2024 05:27:50 PM Interpretation: Performing Lab:[facility] [address] [place] [address]., [address] [address] PH:[phone] Notes/Report: VITAMIN D 25 HYD TOT 25.6 30-100 ng/mL Vitamin D status 25 [place] Vitamin D - Deficiency <20 ng/mL Insufficiency 20-29 ng/mL Sufficiency 30-100 ng/mL Toxicity >100 ng/mL NOTE: A pediatric reference range has not been established by the intern brand of this kit. The [employer] recommends a Vitamin D level of = or >20ng/mL in infants and children. PERFORMED AT [address] [address] [facility]) Reviewed date:03/18/2024 05:27:54 PM Interpretation: Performing Lab:[facility] [address] [place] [address], [address] [address] PH:[phone] Notes/Report: PTH INTACT 52 12-88 pg/mL PERFORMED AT [address] [place] [address],[place] [address] PHOSPHORUS Reviewed date:03/18/2024 05:27:57 PM Interpretation: Performing Lab:[facility]), [address] [place] [address]., [address] [place] [address]. [address] PH:[phone] Notes/Report: PHOSPHORUS 3.5 2.4-4.9 mg/dL PERFORMED AT [address] [place] [address] MAGNESIUM Reviewed date:03/18/2024 05:28:00 PM Interpretation: Performing Lab:[facility] [address] [place] [address]., [address] [place] [address]. [address] PH:[phone] Notes/Report: MAGNESIUM 2.1 1.8-2.6 mg/dL PERFORMED AT [address],[place] [address] ALBUMIN Reviewed date:03/18/2024 05:28:07 PM Interpretation: Performing Lab:[facility] [address] [place] [address], [address], [place]. [address] PH:[phone] Notes/Report: ALBUMIN 3.8 3.2-5.3 g/dL PERFORMED AT [address],[place] [address] BMP w/GFR Reviewed date:03/18/2024 05:27:45 PM Interpretation: Performing Lab:[facility] [address] [place] [address], [address] [facility], [place]. [address] PH:[phone] Notes/Report: SODIUM 141 134-146 mmol/L POTASSIUM 2.7 3.5-5.0 mmol/L CHLORIDE 103 98-109 mmol/L CARBON DIOXIDE 26 22-32 mmol/L ANION GAP 12 5-15 mmol/L BLOOD UREA NITROGEN 17 5-23 mg/dL CREATININE 1.87 0.40-1.00 mg/dL METHOD TRACE ABLE TO IDMS STANDARD GLUCOSE 112 65-99 mg/dL CALCIUM 8.7 8.5-10.5 mg/dL eGFR (CKD-EPI) NON-RACE DEPENDENT 32 >59 ml/min/1.73sq.m Reported eGFR is based on the CKD-EPI 2020 equation that does not use a race coefficient. PERFORMED AT [address] [facility],[place] [address] Reason For Referral Reason R ankle pains Diagnosis 1 Pain in right ankle and joints of right foot (M25.571) Referral Organization [facility] Referring Provider First Name Jarrell Referring Provider Last Name Javy Referring Provider Speciality Family Med [facility] Referred Organization Podiatry [facility] [address] Referred Provider Rashad Mixon Referred Address [address],[place], [place],[address], Referred Provider Specialty Podiatry General Notes Jarrell Palafox 08:30:08 PM >please call pt for appt Referral Priority Routine Reason R Ankle Pain - Patie nt lives in [place], [place]? Diagnosis 1 Ankle pain (M25.579) Referral Organization [facility] Referring Provider First Name Jarrell Referring Provider Last Name Palafox Ref[facility] Referred Organization Podiat[facility] Referred Provider Rashad Mixon Referred Address [address],[place], [place],[address],[place] Referred Provider Specialty Podiatry General Notes Brigette Hernandez 2023 11:57:38 AM >Called patient, co worker answerered, patient was busy, left message to call us. Referral Priority Routine Medications Medication SIG (Take, Route, Frequency, Duration) Notes Start Date End Date Status Vitamin D3 1.25 MG (79183 UT) 1 capsule Orally for 90 days 10/23/2021 Not-Taking Potassium Chloride ER 10 MEQ 3 tablets Orally bid Active Fluconazole 100 MG 1 tablet Orally daily for 3 days 07/12/2024 Active hydroCHLOROthiazide 25 MG TAKE 1 TABLET BY MOUTH IN THE MORNING for 90 Active Metoprolol Tartrate 100 MG take 1 tablet by mouth twice a day with food 90 for 90 days Active Ciprofloxacin HCl 500 MG 1 tablet Orally daily for 3 days 07/12/2024 Active Anusol-HC 2.5 % 1 application Externally bid prn for 30 days 01/16/2024 Active ALPRAZolam 0.25 MG 1 tablet Orally daily prn for 30 days 01/16/2024 Active Social History Tobacco Use: Social History Observation Description Date Details (start date - stop date) Current Smoker NA - NA Tobacco Use/Smoking Question Answer Notes Patient is a current smoker Alcohol Screen (Audit-C) Question Answer Notes Did you have a drink containing alcohol in the p ast year? Yes How often did you have 6 or more drinks on one occasion in the past year? Never (0 point) Points 0 Interpretation Negative Problems Problem Type SNOMED Code ICD Code Onset Dates Problem Status W/U Status Risk Notes Problem 29112910 Essential (primary) hypertension (I10) Active confirmed Problem 318831300 Other obesity du e to excess calories (E66.09) Active confirmed Problem 19856381 Hypokalemia (E87.6) Active confirmed Problem 68361502 Generalized anxiety disorder (F41.1) Active confirmed Problem 68491798 Hypertensive chronic kidney disease with stage 1 through stage 4 chronic kidney disease, or unspecified chronic kidney disease (I12.9) Active confirmed Problem 76419687 Dysphagia, unspecified (R13.10) Active confirmed Problem 943393889 Tobacco use (Z72.0) Active confirmed Problem 683485985 Dyslipidemia (E78.5) Active confirmed Problem Hypertension (95503257) HTN (hypertension) (I10) Active confirmed Problem 639985659415124 Obesity (BMI 30.0-34.9) (E66.9) Active confirmed Problem Chronic kidney disease stage 2 (disorder) (419344253) CKD (chronic kidney disease) stage 2, GFR 60-89 ml/min (N18.2) Active confirmed Problem 42670917 Vitamin D deficiency (E55.9) Active confirmed Problem 13815458 MALA (generalized anxiety disorder) (F41.1) Active confirmed Problem 500844955 BMI 34.0-34.9,adult (Z68.34) Active confirmed Problem 546855261 Atrophic kidney (N26.1) Active confirmed Problem 520354009 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) Active confirmed Problem 584597582 Renal cyst (N28.1) Active confirmed Problem 997306067 Chronic kidney disease, stage 3b (N18.32) Active confirmed Problem 574704841 Body mass index [BMI] 32.0-32.9, adult (Z68.32) Active confirmed Problem 601635185 Body mass index [BMI] 33.0-33.9, adult (Z68.33) Active confirmed Problem 203678963 Stage 3a chronic kidney disease (N18.31) Active confirmed Problem CKD stage G3a/A2 , GFR 45-59 and albumin creatinine ratio 30-299 mg/g (N18.31) Active confirmed Vital Signs Heart Rate 61 /min 07/16/2024 Respiratory Rate 16 /min 07/16/2024 Oximetry 99 % 07/16/2024 Blood pressure diastolic 74 mm Hg 11/29/2024 Height 63 in 11/29/2024 Blood pressure systolic 124 mm Hg 11/29/2024 Weight 187.5 lbs 11/29/2024 BMI 33.21 kg/m2 11/29/2024 Encounters Encounter Location Date Provider Diagnosis [address] [address] 07/16/2024 Jarrell Palafox Pain in right ankle [...] Proteinuria, unspecified R80.9 and Dysphagia, unspecified R13.[address] [address] 03/29/2024 Vishnu Jimenez Stage 3b chronic kidney disease (CKD) N18.32 ; Hypokalemia E87.6 and Essential hypertension I10 [address] [address] 05/31/2024 Vishnu Jimenez Hypokalemia E87.6 ; Chronic kidney disease, stage 3b N18.32 ; Essential (primary) hypertension I10 and Proteinuria, unspecified R80.[address] [address] 11/29/2024 Vishnu Jimenez Stage 3b chronic kidney disease (CKD) N18.32 ; Hypokalemia E87.6 ; Chronic kidney disease, stage 3b N18.32 ; Essential hypertension I10 and Tobacco use Z72.0 [facility] [address] [place] [address] 03/11/2024 Vishnu Jimenez CKD (chronic kidney disease) stage 2, GFR 60-89 ml/min N18.2 [facility] [address] [place] [address] 03/15/2024 Vishnu Jimenez CKD (chronic kidney disease) stage 2, GFR 60-89 ml/min N18.[address] [address] 05/17/2024 Jarrell Palafox Hypokalemia E87.[address] [address] 06/22/2024 Jarrell Palafox HTN (hypertension) I10 and Hypokalemia E87.6 [facility] [address] [place] [address] 07/12/2024 Vishnu Jimenez Assessments Encounter Date Diagnosis (ICD Code) Assessment Notes Treatment Notes Treatment Clinical Notes Section Notes 07/16/2024 Pain in right ankle and joints of right foot (ICD-10 - M25.571) refer to podiatry ?MRI needed ?inserts JOSUÉ wrap 07/16/2024 Hypokalemia (ICD-10 - E87.6) continue med monitor lab via neph diet d/w pt that we can change hctz to aldactone to help BP and help K 05/31/2024 Hypokalemia (ICD-10 - E87.6) 05/31/2024 Chronic kidney disease, stage 3b (ICD-10 - N18.32) Cr is improved in the CKD 3b range, she is encouraged to avoid future NSAID use OK to continue HCTZ 25 daily, she is encouraged to break her KCl tabs in half to prevent them passing without absorption Avoid IV contrast use No UTI symptoms at this time, no abx planned BP is well controlled No edema on exam today F/U labs and BP check in 6 months Hgb is stable over 12 F/U with hematology to monitor M spike 11/29/2024 Stage 3b chronic kidney disease (CKD) (ICD-10 - N18.32) Cr is stable in the CKD 3b range, related to an atrophic kidney and htn Continue current antihypertensive regimen Continue HCTZ and KCl supplement Avoid all NSAID use Avoid IV contrast use Encourage tobacco cessation, methods discussed Encourage good daily oral hydration Na is normal on thiazide No edema present on exam today No UTI symptoms presently, no need for abx 11/29/2024 Hypokalemia (ICD-10 - E87.6) 11/29/2024 Chronic kidney disease, stage 3b (ICD-10 - N18.32) 03/29/2024 Stage 3b chronic kidney disease (CKD) (ICD-10 - N18.32) 53 yo F with CKD 3b, recent Cr elevation to 1.8 after NSAID use for a dental infection She is encouraged to avoid all future NSAID use She denies any flank pain or hematuria She is encouraged to take her KCl 30 po bid and increase the K intake in her diet, high K diet options discussed Mg level is normal Hgb is normal Albuminuria remains mild Repeat K level this week Repeat BMP in 2 months with office follow up Consider changing HCTZ to maxzide if K remains low 03/29/2024 Hypokalemia (ICD-10 - E87.6) 03/11/2024 CKD (chronic kidney disease) stage 2, GFR 60-89 ml/min (ICD-10 - N18.2) 03/15/2024 CKD (chronic kidney disease) stage 2, GFR 60-89 ml/min (ICD-10 - N18.2) 05/17/2024 Hypokalemia (ICD-10 - E87.6) 06/22/2024 HTN (hypertension) (ICD-10 - I10) 06/22/2024 Hypokalemia (ICD-10 - E87.6) 03/29/2024 Essential hypertension (ICD-10 - I10) 11/29/2024 Essential hypertension (ICD-10 - I10) 05/31/2024 Essential (primary) hypertension (ICD-10 - I10) 07/16/2024 Other obesity due to excess calories (ICD-10 - E66.09) diet/exercise 07/16/2024 Body mass index [BMI] 32.0-32.9, adult (ICD-10 - Z68.32) 05/31/2024 Proteinuria, unspecified (ICD-10 - R80.9) 11/29/2024 Tobacco use (ICD-10 - Z72.0) 07/16/2024 Obesity, class 1 (ICD-10 - E66.811) [...] and call if wishes Plan Of Treatment Pending Test Test Name Order Date CMP (COMPLETE METABOLIC PANEL) UA (URINALYSIS, COMPLETE) 01/16/2024 UA (URINALYSIS, COMPLETE) 01/21/2023 UA (URINALYSIS, COMPLETE) 03/29/2024 UA (URINALYSIS, COMPLETE) 05/31/2024 UA (URINALYSIS, COMPLETE) 11/29/2024 UA (URINALYSIS, COMPLETE) 03/11/2024 ALBUMIN, BLOOD 11/29/2024 ALBUMIN, BLOOD 03/11/2024 ALBUMIN, BLOOD 05/31/2024 ALBUMIN, BLOOD 01/21/2023 ALBUMIN, BLOOD 03/29/2024 MAGNESIUM 03/29/2024 MAGNESIUM 01/16/2024 MAGNESIUM 01/21/2023 MAGNESIUM 05/31/2024 MAGNESIUM 03/11/2024 MAGNESIUM 11/29/2024 LIPID PANEL (CHOL/TRIG/HDL/LDL) 01/16/20 CBC NO DIFF 03/29/2024 CBC NO DIFF 01/21/2023 CBC NO DIFF 11/29/2024 CBC NO DIFF 03/11/2024 CBC NO DIFF 05/31/2024 CBC WITH DIFF 01/16/2024 BMP (BASIC MET PANEL - W/GFR) 05/31/2024 BMP (BASIC MET PANEL - W/GFR) 03/29/2024 BMP (BASIC MET PANEL - W/GFR) 03/15/2024 BMP (BASIC MET PANEL - W/GFR) 03/11/2024 UA (REFLEX URINALYSIS TO CULTURE) 2023 MICROALBUMIN with ALB/CREAT RATIO, URINE (MALB)) 11/29/2024 MICROALBUMIN with ALB/CREAT RATIO, URINE (MALB)) 03/11/2024 MICROALBUMIN with ALB/CREAT RATIO, URINE (MALB)) 03/29/2024 MICROALBUMIN with ALB/CREAT RATIO, URINE (MALB)) 05/31/2024 MICROALBUMIN with ALB/CREAT RATIO, URINE (MALB)) 01/21/2023 MICROALBUMIN with ALB/CREAT RATIO, URINE (MALB)) 01/16/2024 PHOSPHORUS 01/21/2023 PHOSPHORUS 03/29/2024 PHOSPHORUS 05/31/2024 PHOSPHORUS 11/29/2024 PHOSPHORUS 03/11/2024 PTH INTACT (PARATHYROID HORMONE) 024 PTH INTACT (PARATHYROID HORMONE) 025 PTH INTACT (PARATHYROID HORMONE) 024 PTH INTACT (PARATHYROID HORMONE) 023 PTH INTACT (PARATHYROID HORMONE) 024 TSH 01/16/2024 URIC ACID 03/29/2024 URIC ACID 05/31/2024 VITAMIN D, 25 LEVEL (TOTAL) 11/29/2024 VITAMIN D, 25 LEVEL (TOTAL) 05/31/2024 VITAMIN D, 25 LEVEL (TOTAL) 03/11/2024 VITAMIN D, 25 LEVEL (TOTAL) 01/16/2024 VITAMIN D, 25 LEVEL (TOTAL) 01/21/2023 DEXA Axial Skeleton (hips, pelvis, spine )* 01/16/2024 BMP w/GFR 01/21/2023 BMP w/GFR 11/29/2024 MAGNESIUM 12/05/2020 PHOSPHORUS 12/05/2020 PTHI (PATH LABS) 12/05/2020 IMMUNOELECTROPHORESIS 12/05/2020 VITAMIN D 25 HYD TOT 12/05/2020 Cologuard 01/16/2024 CBC AND AUTO DIFF * 12/05/2020 COMPREHENSIVE METABOLIC PANEL 12/05/2020 URIC ACID 11/29/2024 SERUM PROTEIN ELECTROPHORESIS 12/05/2020 VITAMIN B12 LEVEL AND FOLATE (FOLIC ACID ) 01/16/2024 MAMM SCREEN BILAT SAAD 3D GLOBAL* 2023 Future Test Test Name Order Date BMP (BASIC MET PANEL - W/GFR) 06/01/2019 UA (REFLEX URINALYSIS TO CULTURE) 2018 RENIN 06/01/2019 PROTEIN and CREATININE (24 HR URINE) 06/2019 DSDNA 06/01/2019 FREE LIGHT CHAINS 06/01/2019 CBC 06/01/2019 ALDOSTERONE 06/01/2019 COMPLEMENT C3 06/01/2019 COMPLEMENT C4 06/01/2019 IMMUNOFIXATION + PROTEIN ELECTROPHORESIS , SERUM 06/01/2019 DEWAYNE SCR,IFA W/REFL TITER PATTERN/[id number] /IDENTRA 06/01/2019 Next Appt Details Provider Name:Vishnu Jimenez, 11/28/2025 02:00:00 PM, [address], [place], [address], Insurance Providers Payer Name Payer Address Payer Phone Subscriber Number Group Number Insured Name Patient Relationship to Insured Coverage Start Date Coverage End Date [employer] [place] [employer] [address] [address] [place] [address] [id number] Hilario Barger Self - patient is the insured 4 Medical (General) History Medical History History ICD Code Dyslipidemia Unilateral renal atrophy HTN Anxiety Low Back Pain Iron Deficiency anemia hypokalemia paraproteinemia CKD-3b microalbuminuria Surgical History Surgery Date(Month/Year) oral surgery eye surgery hysterectomy with 1 ooph section
--- OUTSIDE RECORDS SUMMARY | 2025-03-10 16:18 | XMS_ITS | Encounter Summary ---
Author Organization [facility] Address [id number] [address] [place] [address] Care Team Providers Care Fitter And Turner Name Role Phone Jarrell Palafox DO Primary Care Provider Encounter Details Date Type Department Care Team (Late st Contact Info) Description 02/01/2022 Orders Only Katie Yoon [facility] - Medical Oncology [address] [place] [id number] Lucy Easley RN Social History Tobacco Use Types Packs/Day Years [...] on file Sexual Orientation Not on file COVID-19 Exposure Response Date Recorded In the last 10 days, have yo u been in contact with someone who was confirmed or suspected to have Coronavirus/COVID-19? No / Unsure 02/01/2022 2:38 PM EDT documented as of this encounter Plan of Treatment Not on file documented as of this encounter Visit Diagnoses Not on filedocumented in this encounter Care Teams Fitter And Turner Relationship Specialty Start Date End Date Jarrell Palafox DO [address] [place] [address] PCP - General Family Medicine 06/01/19 documented as of this encounter
--- OUTSIDE RECORDS SUMMARY | 2025-03-10 16:18 | XMS_ITS | Clinical Summary ---
Author Organization [facility] Address [address] [place] [address] Care Team Providers Care Supervisor Coffee Name Role Phone Patt Linda CENTRAL OFFICE SUPERVISOR Unavailable [phone] Social History Tobacco Use Types Packs/Day Years Used Date Smoking Tobacco: Never Assessed Comments Unknown Sex and Gender Information Value Date Recorded Sex Assigned at Not on file Legal Sex Female 8:21 PM EDT Gender Identity Not on file Sexual Orientation Not on file Last Filed Vital Signs Vital Sign Reading Time Taken Comments Blood Pressure - - Pulse - - Temperature - - Respiratory Rate - - Oxygen Saturation - - Inhaled Oxygen Concentration - - Weight 87.1 kg (192 lb) 01/15/2022 12:00 PM EDT Height 160 cm (5' 3 ) 01/15/2022 12:00 PM EDT Body Mass Index 34.01 01/15/2022 12:00 PM EDT Plan of Treatment Health Maintenance Due Date Last Done Comments CT Colonography 1971 Colonoscopy 1971 Colorectal Cancer Screening 1971 FIT-DNA 1971 FIT 1971 FOBT 1971 Sigmoidoscopy 1971 Pap Smear 1992 Cervical Cancer Screening 2001 HPV/Cotest 2001 Mammogram 2011 Influenza Vaccine (Season Ended) 2025 Care Teams Supervisor Coffee Relationship Specialty Start Date End Date Patt Linda, CECILIA [address] [address] PCP - [facility] PANEL SEWER 12/22/23
--- OUTSIDE RECORDS SUMMARY | 2025-03-10 16:26 | XMS_ITS | CCD ---
Author Organization [facility] Care Team Providers Care Bail Bondsman Name Role Phone Dianna Thomas Unavailable Unavailable Primary Care Provider UnavailDR JARRELL Gonzalez Primary Care Unavailable ROSIE SPEARS Admitting Unavailable ROSIE SPEARS Consulting Unavailable ROSIE SPEARS Attending Unavailable Manjeet Martini Consulting Unavailable WALEMARY KATE Admitting Unavailable WALEMARY KATE Consulting Unavailable MARY KATE ECHEVARRIA Attending Unavailable LOUISDR JARRELL Primary Care Unavailable RANKERJEFF Referring Unavailable LOUISJARRELL Primary Care Unavailable RANKJEFF SAVAGE Referring Unavailable LOUISJARRELL Primary Care Unavailable LOUISJARRELL Referring Unavailable LOUISJARRELL Primary Care Unavailable Louis Jarrell NGUYEN Primary Care Provider Tori Escobedo APRN Attending Provider [phone] Jarrell Louis Primary Care Unavailable Tori Escobedo Attending Unavailable Tori Escobedo Admitting Unavailable Allergies Allergy Classification Reported Allergen(s) Allergy Type Date of Onset Reaction(s) Facility (2 sources) Sulfamethoxazole / Trimethoprim Drug Allergy per PCP due to 1 kidney [employer] Other (6 sources) Sulfamethoxazole; Translations: [sulfamethoxazole] Drug Allergy 02-17-20 24 per PCP due to 1 [facility] (6 sources) Trimethoprim; Translations: [trimethoprim] Drug Allergy 02-17-20 24 per PCP due to 1 [facility] Medications Current Medications Medication Drug Class(es) Dates Sig (Normalized) Sig (Original) [id number] 200 actuat albuterol 0.09 mg/actuat metered dose inhaler (3 sources) beta2-Adrenergic Agonist Start: 12-07-2024 take 1 puff(s) by inhalation every four hours Albuterol Sulfate 90 mcg/actuation HFA aerosol inhaler Active 2 PUFF INHALATION Q4H 1 December 07, 2024 12:00am ALPRAZolam 0.25 mg oral tablet (7 sources) Benzodiazepine Start: 02-17-2024 Alprazolam 0.25 mg tablet Active MG PO February 17, 2024 12:00am Start: 02-17-2024 Alprazolam Act jahaira MG PO February 17, 2024 12:00am Xanax Not-Taking Xanax Active azithromycin 250 mg oral tablet (2 sources) Macrolide Antimicrobial Start: 01-19-2025 Azithromycin 250 mg tablet Active 0 PO .COMPLEX January 19, 2025 12:00am For 250 mg dose pack: take 500 mg today (day 1), then 250 mg for 4 days (days 2-5) PO clindamycin 300 mg oral capsule (3 sources) Lincosamide Antibacterial Start: 02-20-2022 take 1 capsule by mouth every eight hours Clindamycin HCl 300 MG 1 cap(s) Orally tid for 10 day(s) Jun, Active hydroCHLOROthiazide 25 mg oral tablet (7 sources) Thiazide Diuretic Start: 02-17-2024 Hydrochlorothiazide 25 mg tablet Active MG PO February 17, 2024 12:00am Start: 02-17-2024 Hydrochlorothi azide Active MG PO February 17, 2024 12:00am hydroCHLOROthiaz areli Active methylPREDNISolone 4 mg oral tablet (5 sources) Corticosteroid Start: 12-07-2024 End: 01-19-2025 take 1 tablet by mouth once Methylprednisolone (Medrol (Himanhsu)) 4 mg tablets,dose pack Active 0 PO per package directions January 19, 2025 12:00am PO PER PKG DIR metoprolol tartrate 100 mg oral tablet (7 sources) beta-Adrenergic Hung Start: 02-17-2024 Metoprolol Tartrate 100 mg tablet Active MG PO February 17, 2024 12:00am Start: 02-17-2024 Metoprolol Tar trate Active MG PO February 17, 2024 12:00am Metoprolol Succi prabhakar Active Potassium (2 sources) Potassium Active potassium chloride 10 meq extended release oral tablet (5 sources) Start: 02-17-2024 Potassium Chlo ride 10 mEq tablet extended release Active MEQ PO February 17, 2024 12:00am Start: 02-17-2024 Potassium Chlo ride Active MEQ PO February 17, 2024 12:00am Completed/Discontinued Medications Medication Drug Class(es) Dates Sig (Normalized) Sig (Original) amoxicillin 500 mg oral capsule (7 sources) Penicillin-class Antibacterial Start: 02-17-2024 End: 11-09-2024 take 1 capsule by mouth twice daily Amoxicillin 500 mg capsule Discontinued 500 MG PO Twice daily 20 February 17, 2024 12:00am November 09, 2024 6:41pm Start: 05-15-2021 take 1 capsule by mo [facility] three times daily Amoxicillin 500 MG 1 capsule Orally 3 times per day for 10 day(s) Apr, Not-Taking 12 hr dextromethorphan hydrobromide 60 mg / guaiFENesin 1200 mg extended release oral tablet (3 sources) Uncompetitive Y-izyxcq-G-aspartate Receptor Antagonist, Sigma-1 Agonist Start: 12-07-2024 End: 01-19-2025 take 60-1200 mg by mouth every twelve hours Dextromethorphan-Guaifenesin (Mucinex Dm) 60-1,200 mg tablet extended release 12 hr Discontinued 1 TAB PO Twice daily 14 December 07, 2024 12:00am January 19, 2025 4:51pm fluconazole 150 mg oral tablet (2 sources) Azole Antifungal Start: 08-28-2020 take 1 tablet by mouth once Diflucan 150 MG 1 tablet Orally once; after antibiotics are finished if needed for 1 days Aug, Not-Taking hydrocortisone 25 mg/ml topical cream (5 sources) Corticosteroid Start: 02-17-2024 End: 11-09-2024 Hydrocortisone (Procto-Med Hc) 2.5 % cream with perineal applicator Discontinued NH February 17, 2024 12:00am November 09, 2024 6:48pm nitrofurantoin, macrocrystals 25 mg / nitrofurantoin, monohydrate [...] a day for 2 day(s) Aug, Not-Taking predniSONE 20 mg oral tablet (5 sources) Start: 02-17-2024 End: 11-09-2024 take 1 tablet by mouth once daily Prednisone 20 mg tablet Discontinued 20 MG PO Daily 3 3 February 17, 2024 12:00am November 09, 2024 6:41pm triamcinolone acetonide 1 mg/ml topical cream (4 sources) Corticosteroid Start: 11-09-2024 End: 01-19-2025 Triamcinolone Acetonide 0.1 % cream Discontinued 1 APPLIC TOPICAL Three times daily 30 November 09, 2024 1:00am January 19, 2025 4:51pm Problems Problem Classification Problem Date Documented Da te Episodic/Chronic Abdominal pain (4 sources) Unspecified abdominal pain; Translations: [UNSPECIFIED ABDOMINAL PAIN] Onset: 06-22-2022 Episodic Acute bronchitis (2 sources) Acute bronchitis due to other specified organisms; Translations: [Acute bronchitis] 12-07-2024 Episodic Calculus of urinary tract (1 source) Personal history of urinary calculi; Translations: [PERSONAL HISTORY OF URINARY CALCULI] Onset: 09-11-2022 Episodic Chronic kidney disease (5 sources) Chronic kidney disease stage 3; Translations: [Stage 3 chronic kidney disease] Onset: 03-11-2024 11-09-2024 Chronic Chronic kidney disease (1 source) Chronic kidney disease; Translations: [Chronic kidney disease, stage 3b] Onset: 05-28-2024 Chronic obstructive pulmonary disease and bronchiectasis (2 sources) Bronchitis; Translations: [Bronchitis, not specified as acute or chronic] 01-19-2025 Episodic Deficiency and other anemia (4 sources) Iron deficiency anemia; Translations: [Iron deficiency anemia, unspecified] 11-09-2024 Episodic Disorders of teeth and jaw (3 sources) Dental caries, unspecified; Translations: [Dental caries] Onset: 02-20-2022 Resolved: 02-20-2022 Episodic E Codes: Natural/environment (1 source) Other and unspecified overexertion or strenuous movements or postures, initial encounter; Translations: [OTH AND UNS OVREXRT/STRN MVMT/POS INT] Onset: 09-11-2022 Episodic Essential hypertension (4 sources) Hypertensive disorder; Translations: [Essential (primary) hypertension] 11-09-2024 Chronic Other aftercare (1 source) Other ferry terminal agent (current) drug therapy; Translations: [OTH RESIDENTIAL CURRENT DRUG THERAPY] Onset: 09-11-2022 Episodic Other connective tissue disease (3 sources) Pain in left thigh; Translations: [PAIN IN LEFT THIGH] Onset: 09-09-2022 Episodic Other lower respiratory disease (2 sources) Dyspnea; Translations: [Shortness of breath] 01-19-2025 Episodic Other skin disorders (3 sources) Rash and other nonspecific skin eruption; Translations: [Rash and other nonspecific skin eruption] 11-09-2024 Episodic Other upper respiratory infections (4 sources) Acute bacterial pharyngitis; Translations: [Acute pharyngitis due to other specified organisms] 02-17-2024 Episodic Residual codes; unclassified (1 source) Procedure and treatment not carried out due to patient leaving prior to being seen by health care provider; Translations: [PROC AND TX NOT CARRIED OUT PT LEAVE] Onset: 07-04-2022 Episodic Residual codes; unclassified (4 sources) Absent kidney; Translations: [Acquired absence of kidney] 11-09-2024 Episodic Sprains and strains (1 source) Strain of unspecified muscles, fascia and tendons at thigh level, left thigh, initial encounter; Translations: [STRAIN UNS MUSC FASC LT THIGH INIT] Onset: 09-11-2022 Episodic Substance-related disorders (1 source) Nicotine dependence, cigarettes, uncomplicated; Translations: [NICOTINE DEPEND CIGARETTES UNCOMP] Onset: 09-11-2022 Chronic Unclassified (1 source) Cough, unspecified; Translations: [Cough, unspecified] Onset: 01-19-2025 Results Test Name Value Interpretation Reference Range Facility X-ray reportOrdered By: Chris Coombs on 01-19-2025 Study report [facility] [place] [address] XRay Report Signed Patient: Kasia Barger MR#: [id number] : 1970 Acct:[id number] Age/Sex: 54 / F ADM Date: 5 Loc: XDUCLY Room: [facility] Attending Dr: Tori Escobedo CHIEF PORT DIRECTOR Copies to: Tori Escobedo APRN~ Ordering Provider: Tori Escobedo APRN Date of Service: 01/19/25 XR/XR chest 2V*: COUGH, SOB PA AND LATERAL CHEST: CLINICAL HISTORY: Shortness breath COMPARISON: None FINDINGS: Unremarkable cardiomediastinal. Lungs are clear. No effusion or pneumothorax XR/XR chest 2V* IMPRESSION: NO ACUTE CARDIOPULMONARY ABNORMALITY. Impression dictated by: Yoan Coombs M.D. 01/19/2025 5:29 PM Dictation Location: RADIO-PC-29 Transcribed By: JERAMY 01/19/251728 Dictated By: Yoan Coombs MD 01/19/251727 Signed By: 01/19/251728 [facility] Work Phone: XR chest 2V*on 01-19-2025 XR chest 2V* [facility] [place] [address] XRay Report Signed Patient: Kasia Barger MR#: [id number] : 1970 Acct:[id number] Age/Sex: 54 / F ADM Date: 01/19/25 Loc: XDUCLY Room: Type: [facility] Attending Dr: Tori Escobedo APRN Copies to: Tori Escobedo APRN Ordering Provider: Tori Escobedo APRN Date of Service: 01/19/25 XR/XR chest 2V*: COUGH, SOB PA AND LATERAL CHEST: CLINICAL HISTORY: Shortness breath COMPARISON: None FINDINGS: Unremarkable cardiomediastinal. Lungs are clear. No effusion or pneumothorax XR/XR chest 2V* IMPRESSION: NO ACUTE CARDIOPULMONARY ABNORMALITY. Impression dictated by: Yoan Coombs M.D. 01/19/2025 5:29 PM Dictation Location: RADIO-PC-29 Transcribed By: JERAMY 01/19/251728 Dictated By: Yoan Coombs MD 01/19/251727 Signed By: 01/19/25 172 Normal [facility] ALBUMINon 11-26-2024 Albumin [Mass/Vol] 4.0 g/dL Normal 3.2-5.3 [facility] Comment on above: Performed By: #### C BC, 1751-7, BMP, 08232-9, 2777-1, 2731-8, 53764-9 #### [facility] ([id number]) [address], [address] [place] [address] BASIC METABOLIC PANLon 11-26 Anion gap [Moles/Vol] 10 mmol/L Normal 5-15 [facility] Comment on above: Performed By: #### C SHEELA, 1751-7, BMP, 96628-7, 2777-1, 2731-8, 01087-2 #### [facility] ([id number]) [address], [address] [place] [address] Calcium [Mass/Vol] 9.5 mg/dL Normal 8.5-10.5 [facility] Comment on above: Performed By: #### Paula COKER, 175-7, BMP, 74536-3, 2777-1, 2731-8, 65138-1 #### [facility] ([id number]) [address], [address] [place] [address] Chloride [Moles/Vol] 103 mmol/L Normal 98-109 [facility] Comment on above: Performed By: #### Paula COKER, 175-7, BMP, 68639-4, 2777-1, 2731-8, 75508-6 #### [facility] ([id number]) [address], [address] [place] [address] CO2 [Moles/Vol] 29 mmol/L Normal 22-32 [facility] Comment on above: Performed By: #### Paula BC, 1751-7, BMP, 90204-5, 2777-1, 2731-8, 61062-4 #### [facility] ([id number]) [address], [address] [place] [address] Creatinine [Mass/Vol] 1.58 mg/dL High 0.40-1.00 [facility] Comment on above: Result Comment: METH OD TRACEABLE TO IDMS STANDARD Performed By: #### Paula COKER, 175-7, BMP, 75934-9, 2777-1, 2731-8, 62953-0 #### [facility] ([id number]) [address], [address] [place] [address] GFR/1.73 sq M.predicted among non-blacks MDRD (S/P/Bld) [Vol rate/Area] 39 mL/min/{1.73_m2} Low >59 [facility] Comment on above: Result Comment: Reported eGFR is based on the CKD-EPI 2020 equation that does not use a race coefficient. Performed By: #### Paula COKER, 1750-7, LYRIC, 60570-5, 7-1, 2730-8, 10472-5 #### [facility] ([id number]) [address], [address] [place] [address] Glucose [Mass/Vol] 101 mg/dL High 65-99 [facility] Comment on above: Performed By: #### Paula COKER, 7, LYRIC, 46796-3, 7-1, 2731-8, 15626-2 #### [facility] ([id number]) [address], [address] [place] [address] Potassium [Moles/Vol] 3.7 mmol/L Normal 3.5-5.0 [facility] Comment on above: Performed By: #### Paula COKER, 1750-7, BMP, 89323-7, 7-1, 2731-8, 68619-4 #### [facility] ([id number]) [address], [address] [place] [address] Sodium [Moles/Vol] 142 mmol/L Normal 134-146 [facility] Comment on above: Performed By: #### Paula COKER, 175-7, BMP, 20581-7, 2777-1, 2731-8, 88421-2 #### [facility] ([id number]) [address] [address] [place] [address] Urea nitrogen [Mass/Vol] 15 mg/dL Normal 5-23 [facility] Comment on above: Performed By: #### Paula COKER, 1750-7, BMP, 23346-6, 2777-1, 2731-8, 09207-3 #### [facility] ([id number]) [address] [address] [place] [address] COMPLETE BLOOD COUNTon 11-26 Erythrocyte distribution width (RBC) [Ratio] 14.4 % Normal 11.5-15.0 [facility] Comment on above: Performed By: #### Paula COKER, 7, BMP, 55915-8, 7-1, 273-8, 00807-9 #### [facility] ([id number]) [address], [facility] [address] [place] [address] Hematocrit (Bld) [Volume fraction] 45.2 % Normal 35-47 [facility] Comment on above: Performed By: #### Paula COKER, 7, BMP, 32260-6, 7-1, 273-8, 71295-9 #### [facility] ([id number]) [address] [address] [place] [address] Hemoglobin (Bld) [Mass/Vol] 15.0 g/dL Normal 11.7-15.5 [facility] Comment on above: Performed By: #### Paula COKER, 1750-7, BMP, 95818-3, 7-1, 2731-8, 39771-5 #### [facility] ([id number]) [address] [address] [place] [address] MCH (RBC) [Entitic mass] 30.1 pg Normal 27-34 [facility] Comment on above: Performed By: #### Paula COKER, 1750-7, BMP, 82061-2, 2777-1, 2731-8, 62656-8 #### [facility] ([id number]) [address], [address] [place] [address] MCHC (RBC) [Mass/Vol] 33.1 g/dL Normal 32-36 [facility] Comment on above: Performed By: #### Paula COKER, 1750-7, BMP, 10133-4, 2777-1, 2731-8, 88200-5 #### [facility] ([id number]) [address], [address] [place] [address] MCV (RBC) [Entitic vol] 91 fL Normal 80-100 [facility] Comment on above: Performed By: #### Paula COKER, 1750-7, BMP, 63333-4, 2777-1, 2731-8, 83740-9 #### [facility] ([id number]) [address], [address] [place] [address] Platelet mean volume (Bld) [Entitic vol] 8.6 fL Normal 7-12 [facility] Comment on above: Performed By: #### Paula COKER, 1750-7, BMP, 13958-9, 2777-1, 2731-8, 64276-8 #### [facility] ([id number]) [address], [address] [place] [address] Platelets (Bld) [#/Vol] 233 10*3/uL Normal 150-450 [facility] Comment on above: Performed By: #### Paula COKER, 1750-7, BMP, 08899-1, 2777-1, 2731-8, 61600-2 #### [facility] ([id number]) [address], [address] [place] [address] RBC COUNT 4.98 X10E12/L Normal 3.80-5.20 [facility] Comment on above: Performed By: #### Paula COKER, 1750-7, BMP, 47052-9, 2777-1, 2731-8, 34273-8 #### [facility] ([id number]) [address], [address] [place] [address] WBC (Bld) [#/Vol] 6.4 10*3/uL Normal 4.0-11.0 [facility] Comment on above: Performed By: #### Paula COKER, 1750-7, BMP, 42292-2, 2777-1, 2731-8, 59471-7 #### [facility] ([id number]) [address], [address] [place] [address] MAGNESIUMon 11-26-2024 Magnesium [Mass/Vol] 2.4 mg/dL Normal 1.8-2.6 [facility] Comment on above: Performed By: #### Paula COKER, 1750-7, BMP, 18483-6, 7-1, 2730-8, 85817-5 #### [facility] ([id number]) [address], [address] [place] [address] MICROALBUMIN - ALBUMIN:CREAT ININE URINE RATIOon 11-26-2024 ALB/CREAT RATIO 32.5 mg/g creat High 0.0-30.0 [facility] Comment on above: Performed By: #### Paula COKER, 1750-7, BMP, 66606-4, 7-1, 273-8, 45423-4 #### [facility] ([id number]) [address], [address] [place] [address] Albumin DL <= 20 mg/L (U) [Mass/Vol] 2.3 mg/dL High 0.0-1.9 [facility] Comment on above: Performed By: #### Paula COKER, 1750-7, BMP, 26373-9, 2777-1, 2731-8, 44666-8 #### [facility] ([id number]) [address], [address] [place] [address] URINE CREAT 70.77 mg/dL Normal [facility] Comment on above: Performed By: #### Paula COKER, 1751-7, BMP, 74797-6, 2777-1, 2731-8, 41152-8 #### [facility] ([id number]) [address], [address] [place] [address] PHOSPHORUSon 11-26-2024 Phosphate [Mass/Vol] 3.7 mg/dL Normal 2.4-4.9 [facility] Comment on above: Performed By: #### Paula COKER, 1751-7, BMP, 62707-7, 2777-1, 2731-8, 78602-4 #### [facility] ([id number]) [address], [address] [place] [address] Parathyrin.intact [Mass/Vol] on 11-26-2024 PTH INTACT 51 pg/mL Normal 12-88 [facility] Comment on above: Performed By: #### Paula COKER, 1751-7, BMP, 86416-4, 2777-1, 2731-8, 33039-6 #### [facility] ([id number]) [address], [address] [place] [address] URIC ACIDon 11-26-2024 Urate [Mass/Vol] 5.9 mg/dL Normal 2.6-7.2 [facility] Comment on above: Performed By: #### Paula COKER, 1751-7, BMP, 23315-5, 2777-1, 2731-8, 13231-2 #### [facility] ([id number]) [address], [address] [place] [address] URINALYSISon 11-26-2024 Bilirubin Ql (U) Negative Normal NEG [facility] Comment on above: Performed By: #### Paula COKER, 1751-7, BMP, 33099-1, 2777-1, 2731-8, 88203-9 #### [facility] ([id number]) [address], [address] [place] [address] BLOOD/HGB Negative Normal NEG [facility] Comment on above: Performed By: #### Paula COKER, 1751-7, BMP, 94862-6, 2777-1, 2731-8, 99652-1 #### [facility] ([id number]) [address], [address] [place] [address] Color (U) YELLOW Normal YELLOW [facility] Comment on above: Performed By: #### Paula COKER, 1751-7, BMP, 09928-3, 2777-1, 2731-8, 07509-6 #### [facility] ([id number]) [address], [address] [place] [address] Glucose Ql (U) Negative Normal NEG [facility] Comment on above: Performed By: #### Paula COKER, 175-7, BMP, 43816-0, 2777-1, 2731-8, 33116-8 #### [facility] ([id number]) [address], [address] [place] [address] Ketones Ql (U) Negative Normal NEG [facility] Comment on above: Performed By: #### Paula COKER, 175-7, BMP, 49943-5, 2777-1, 2731-8, 00274-3 #### [facility] ([id number]) [address], [address] [place] [address] Leukocyte esterase Test strip Ql (U) MODERATE Abnormal NEG [facility] Comment on above: Performed By: #### Paula COKER, 1751-7, BMP, 68224-1, 2777-1, 2731-8, 28166-8 #### [facility] ([id number]) [address], [address] [place] [address] MUCOUS PRESENT Abnormal NONE [facility] Comment on above: Performed By: #### C BC, 1751-7, BMP, 24799-1, 2777-1, 2731-8, 11828-7 #### [facility] ([id number]) [address], [address] [place] [address] Nitrite Ql (U) Negative Normal NEG [facility] Comment on above: Performed By: #### Paula COKER, 1751-7, BMP, 04604-0, 2777-1, 2731-8, 46426-5 #### [facility] ([id number]) [address], [address] [place] [address] pH (U) 6.5 [pH] Normal 5.0-8.5 [facility] Comment on above: Performed By: #### Paula COKER, 175-7, BMP, 91000-3, 2777-1, 2731-8, 45682-3 #### [facility] ([id number]) [address], [address] [place] [address] Protein Ql (U) Trace Abnormal NEG [facility] Comment on above: Performed By: #### Paula COKER, 175-7, BMP, 63030-8, 2777-1, 2731-8, 83049-4 #### [facility] ([id number]) [address], [facility] [address] [place] [address] R.B.CELLS 1 /hpf Normal 0-5 [facility] Comment on above: Performed By: #### Paula COKER, 175-7, BMP, 85292-9, 2777-1, 2731-8, 75783-8 #### [facility] ([id number]) [address] [address] [place] [address] Specific gravity (U) [Rel density] 1.017 Normal 1.003-1.035 [facility] Comment on above: Performed By: #### Paula COKER, 1751-7, BMP, 37766-9, 2777-1, 2731-8, 93961-1 #### [facility] ([id number]) [address], [address] [place] [address] SQUAMOUS EPITHELIUM 1 /hpf Normal 0-5 [facility] Comment on above: Performed By: #### Paula COKER, 1751-7, BMP, 10553-0, 2777-1, 2731-8, 48892-4 #### [facility] ([id number]) [address], [address] [place] [address] TURBIDITY CLEAR Normal CLEAR [facility] Comment on above: Performed By: #### Paula COKER, 1751-7, BMP, 74617-8, 2777-1, 2731-8, 24222-6 #### [facility] ([id number]) [address], [address] [place] [address] Urobilinogen (U) [Mass/Vol] mg/dL Normal <1.1 [facility] Comment on above: Performed By: #### Paula COKER, 1751-7, BMP, 27405-0, 2777-1, 2731-8, 83293-3 #### [facility] ([id number]) [address], [address] [place] [address] W.B.CELLS 57 /hpf High 0-5 [facility] Comment on above: Performed By: #### Paula COKER, 1751-7, BMP, 28193-4, 2777-1, 2731-8, 39335-6 #### [facility] ([id number]) [address], [address] [place] [address] Vitamin D+Metabolites [Mass/ Vol]on 11-26-2024 VITAMIN D 25 HYD TOT 22.1 ng/mL Low 30-100 [facility] Comment on above: Result Comment: Vitamin D status 25 [place] Vitamin D Deficiency <20 ng/mL Insufficiency 20-29 ng/mL Sufficiency 30-100 ng/mL Toxicity >100 ng/mL NOTE: A pediatric reference range has not been established by the bridal sales consultant of this kit. The [place] [employer] recommends a Vitamin D level of = or >20ng/mL in infants and children. Performed By: #### Paula COKER, 175-7, BMP, 69541-4, 2777-1, 2731-8, 03292-8 #### [facility] ([id number]) [address], [address] [place] [address] ALBUMINon 05-28-2024 Albumin [Mass/Vol] 3.7 g/dL Normal 3.2-5.3 [facility] Comment on above: Performed By: #### Paula COKER, 175-7, BMP, 36604-4, 2777-1, 2731-8, 16129-3 #### [facility] ([id number]) [address], [address] [place] [address] BASIC METABOLIC PANLon 05-28 Anion gap [Moles/Vol] 11 mmol/L Normal 5-15 [facility] Comment on above: Performed By: #### Paula COKER, 1750-7, BMP, 50583-9, 2777-1, 2731-8, 89289-7 #### [facility] ([id number]) [address], [address] [place] [address] Calcium [Mass/Vol] 9.2 mg/dL Normal 8.5-10.5 [facility] Comment on above: Performed By: #### Paula COKER, 175-7, BMP, 51691-3, 2777-1, 2731-8, 68653-0 #### [facility] ([id number]) [address], [address] [place] [address] Chloride [Moles/Vol] 104 mmol/L Normal 98-109 [facility] Comment on above: Performed By: #### Paula COKER, 175-7, BMP, 58087-4, 2777-1, 2731-8, 71771-8 #### [facility] ([id number]) [address], [address] [place] [address] CO2 [Moles/Vol] 26 mmol/L Normal 22-32 [facility] Comment on above: Performed By: #### C SHEELA, 1750-7, BMP, 96486-1, 7-1, 273-8, 06763-8 #### [facility] ([id number]) [address], [address] [place] [address] Creatinine [Mass/Vol] 1.57 mg/dL High 0.40-1.00 [facility] Comment on above: Result Comment: METH OD TRACEABLE TO IDMS STANDARD Performed By: #### C SHEELA, 7, LYRIC, 75541-7, 7-1, 273-8, 11705-5 #### [facility] ([id number]) [address], [address] [place] [address] GFR/1.73 sq M.predicted among non-blacks MDRD (S/P/Bld) [Vol rate/Area] 39 mL/min/{1.73_m2} Low >59 [facility] Comment on above: Result Comment: Reported eGFR is based on the CKD-EPI 2020 equation that does not use a race coefficient. Performed By: #### Paula COKER, 1750-7, LYRIC, 19083-4, 2776-, 273-8, 37989-3 #### [facility] ([id number]) [address], [address] [place] [address] Glucose [Mass/Vol] 102 mg/dL High 65-99 [facility] Comment on above: Performed By: #### Paula COKER, 1750-7, BMP, 87072-5, 7-1, 2731-8, 61260-1 #### [facility] ([id number]) [address], [address] [place] [address] Potassium [Moles/Vol] 3.0 mmol/L Low 3.5-5.0 [facility] Comment on above: Performed By: #### Paula COKER, 1750-7, BMP, 75280-8, 7-1, 2731-8, 45509-5 #### [facility] ([id number]) [address], [address] [place] [address] Sodium [Moles/Vol] 141 mmol/L Normal 134-146 [facility] Comment on above: Performed By: #### Paula COKER, 1750-7, BMP, 23260-6, 7-1, 2731-8, 93638-3 #### [facility] ([id number]) [address], [address] [place] [address] Urea nitrogen [Mass/Vol] 14 mg/dL Normal 5-23 [facility] Comment on above: Performed By: #### Paula COKER, 7, BMP, 48756-9, 2776-1, 2730-8, 93850-5 #### [facility] ([id number]) [address], [address] [place] [address] COMPLETE BLOOD COUNTon 05-28 Erythrocyte distribution width (RBC) [Ratio] 14.6 % Normal 11.5-15.0 [facility] Comment on above: Performed By: #### Paula COKER, 7, BMP, 63404-9, 2776-1, 3084-1 #### [facility] ([id number]) [address], [address] [place] [address] Hematocrit (Bld) [Volume fraction] 41.5 % Normal 35-47 [facility] Comment on above: Performed By: #### Paula COKER, 1750-7, BMP, 64649-1, 2776-1, 3084-1 #### [facility] ([id number]) [address], [address] [place] [address] Hemoglobin (Bld) [Mass/Vol] 13.8 g/dL Normal 11.7-15.5 [facility] Comment on above: Performed By: #### Paula COKER, 1750-7, BMP, , 2776-09, 3083-09 #### [facility] ([id number]) [address], [address] [place] [address] MCH (RBC) [Entitic mass] 30.0 pg Normal 27-34 [facility] Comment on above: Performed By: #### Paula COKER, 1751-03, BMP, , 2776-09, 3083- #### [facility] ([id number]) [address], [address] [place] [address] MCHC (RBC) [Mass/Vol] 33.3 g/dL Normal 32-36 [facility] Comment on above: Performed By: #### Paula COKER, 1751-03, BMP, , 2776-09, 3083-09 #### [facility] ([id number]) [address], [address] [place] [address] MCV (RBC) [Entitic vol] 90 fL Normal 80-100 [facility] Comment on above: Performed By: #### Paula COKER, 1751-03, BMP, , 2776-09, 3083- #### [facility] ([id number]) [address], [address] [place] [address] Platelet mean volume (Bld) [Entitic vol] 8.7 fL Normal 7-12 [facility] Comment on above: Performed By: #### Paula COKER, 1750-, BMP, , 2776-09, 3083- #### [facility] ([id number]) [address], [address] [place] [address] Platelets (Bld) [#/Vol] 238 10*3/uL Normal 150-450 [facility] Comment on above: Performed By: #### Paula COKER, 1750-7, BMP, 07875-4, 2776-1, 308-1 #### [facility] ([id number]) [address], [address] [place] [address] RBC COUNT 4.61 X10E12/L Normal 3.80-5.20 [facility] Comment on above: Performed By: #### Paula COKER, 1750-7, BMP, 94250-5, 2776-, 308-1 #### [facility] ([id number]) [address], [address] [place] [address] WBC (Bld) [#/Vol] 6.6 10*3/uL Normal 4.0-11.0 [facility] Comment on above: Performed By: #### Paula COKER, 1750-7, BMP, 66004-6, 2776-, 308-1 #### [facility] ([id number]) [address], [address] [place] [address] MAGNESIUMon 05-28-2024 Magnesium [Mass/Vol] 2.2 mg/dL Normal 1.8-2.6 [facility] Comment on above: Performed By: #### Paula COKER, 1750-7, BMP, 54902-6, 2776-, 2730-8, 47297-8 #### [facility] ([id number]) [address] [address] [place] [address] MICROALBUMIN - ALBUMIN:CREAT ININE URINE RATIOon 05-28-2024 ALB/CREAT RATIO 38.9 mg/g creat High 0.0-30.0 [facility] Comment on above: Performed By: #### Paula COKER, 1750-7, BMP, 49070-8, 2776-1, 1-8, 26749-7 #### [facility] ([id number]) [address], [address] [place] [address] Albumin DL <= 20 mg/L (U) [Mass/Vol] 4.8 mg/dL High 0.0-1.9 [facility] Comment on above: Performed By: #### Paula COKER, 1751-7, BMP, 89822-2, 2777-1, 2731-8, 09245-7 #### [facility] ([id number]) [address], [address] [place] [address] URINE CREAT 123.25 mg/dL Normal [facility] Comment on above: Performed By: #### C SHEELA, 1751-7, BMP, 22392-6, 2777-1, 2731-8, 26687-2 #### [facility] ([id number]) [address], [address] [place] [address] PHOSPHORUSon 05-28-2024 Phosphate [Mass/Vol] 3.6 mg/dL Normal 2.4-4.9 [facility] Comment on above: Performed By: #### Paula COKER, 175-7, BMP, 25466-6, 2777-1, 2731-8, 29638-3 #### [facility] ([id number]) [address], [address] [place] [address] URIC ACIDon 05-28-2024 Urate [Mass/Vol] 6.3 mg/dL Normal 2.6-7.2 [facility] Comment on above: Performed By: #### Paula COKER, 175-7, BMP, 88185-7, 2777-1, 2731-8, 44402-6 #### [facility] ([id number]) [address], [address] [place] [address] URINALYSISon 05-28-2024 Bilirubin Ql (U) Negative Normal NEG [facility] Comment on above: Performed By: #### Paula COKER, 1751-7, BMP, 62446-5, 2777-1, 2731-8, 60108-7 #### [facility] ([id number]) [address], [address] [place] [address] BLOOD/HGB Trace Abnormal NEG [facility] Comment on above: Performed By: #### Paula COKER, 1751-7, BMP, 57751-1, 2777-1, 2731-8, 74771-9 #### [facility] ([id number]) [address], [address] [place] [address] Color (U) YELLOW Normal YELLOW [facility] Comment on above: Performed By: #### Paula COKER, 1751-7, BMP, 06001-6, 2777-1, 2731-8, 70054-5 #### [facility] ([id number]) [address], [address] [place] [address] Glucose Ql (U) Negative Normal NEG [facility] Comment on above: Performed By: #### Paula COKER, 175-7, BMP, 51545-3, 2777-1, 2731-8, 89726-5 #### [facility] ([id number]) [address], [address] [place] [address] Ketones Ql (U) Negative Normal NEG [facility] Comment on above: Performed By: #### Paula COKER, 175-7, BMP, 60761-6, 2777-1, 2731-8, 91934-3 #### [facility] ([id number]) [address], [address] [place] [address] Leukocyte esterase Test strip Ql (U) Large Abnormal NEG [facility] Comment on above: Performed By: #### Paula COKER, 1751-7, BMP, 48156-9, 2777-1, 2731-8, 22755-5 #### [facility] ([id number]) [address], [address] [place] [address] MUCOUS PRESENT Abnormal NONE [facility] Comment on above: Performed By: #### Paula COKER, 1751-7, BMP, 15093-9, 2777-1, 2731-8, 58632-4 #### [facility] ([id number]) [address], [address] [place] [address] Nitrite Ql (U) Positive Abnormal NEG [facility] Comment on above: Performed By: #### Paula COKER, 1751-7, BMP, 91713-2, 2777-1, 2731-8, 04769-7 #### [facility] ([id number]) [address], [address] [place] [address] pH (U) 6.0 [pH] Normal 5.0-8.5 [facility] Comment on above: Performed By: #### Paula COKER, 175-7, BMP, 83782-1, 7-1, 2730-8, 54525-3 #### [facility] ([id number]) [address], [address] [place] [address] Protein Ql (U) 30 mg/dL Abnormal NEG [facility] Comment on above: Performed By: #### Paula COKER, 1750-7, BMP, 65422-7, 7-1, 273-8, 91257-7 #### [facility] ([id number]) [address], [address] [place] [address] R.B.CELLS 6 /hpf High 0-5 [facility] Comment on above: Performed By: #### Paula COKER, 175-7, BMP, 54597-3, 2777-1, 273-8, 33390-2 #### [facility] ([id number]) [address], [address] [place] [address] Specific gravity (U) [Rel density] 1.015 Normal 1.003-1.035 [facility] Comment on above: Performed By: #### Paula COKER, 175-7, BMP, 57625-0, 2777-1, 2731-8, 55765-1 #### [facility] ([id number]) [address], [address] [place] [address] SQUAMOUS EPITHELIUM 1 /hpf Normal 0-5 [facility] Comment on above: Performed By: #### C BC, 1751-7, BMP, 39297-4, 2777-1, 2731-8, 01481-7 #### [facility] ([id number]) [address], [address] [place] [address] TURBIDITY HAZY Abnormal CLEAR [facility] Comment on above: Performed By: #### Paula COKER, 1751-7, BMP, 65026-2, 2777-1, 2731-8, 66000-3 #### [facility] ([id number]) [address], [address] [place] [address] Urobilinogen (U) [Mass/Vol] mg/dL Normal <1.1 [facility] Comment on above: Performed By: #### Paula COKER, 1751-7, BMP, 02258-5, 2777-1, 2731-8, 49338-0 #### [facility] ([id number]) [address], [address] [place] [address] W.B.CELLS 381 /hpf High 0-5 [facility] Comment on above: Performed By: #### Paula COKER, 1751-7, BMP, 10830-1, 2777-1, 2731-8, 31769-1 #### [facility] ([id number]) [address], [address] [place] [address] ALBUMINon 03-11-2024 Albumin [Mass/Vol] 3.8 g/dL Normal 3.2-5.3 [facility] Comment on above: Performed By: #### Paula BC, 1751-7, BMP, 43767-0, 2777-1, 2731-8, 54306-4 #### [facility] ([id number]) [address], [address] [place] [address] BASIC METABOLIC PANLon 03-11 Anion gap [Moles/Vol] 12 mmol/L Normal 5-15 [facility] Comment on above: Performed By: #### C BC, 1751-7, BMP, 59293-1, 2777-1, 2731-8, 48085-2 #### [facility] ([id number]) [address], [address] [place] [address] Calcium [Mass/Vol] 8.7 mg/dL Normal 8.5-10.5 [facility] Comment on above: Performed By: #### Paula COKER, 1751-7, BMP, 21237-5, 2777-1, 2731-8, 80850-2 #### [facility] ([id number]) [address], [address] [place] [address] Chloride [Moles/Vol] 103 mmol/L Normal 98-109 [facility] Comment on above: Performed By: #### Paula COKER, 175-7, BMP, 26131-7, 2777-1, 2731-8, 04493-8 #### [facility] ([id number]) [address], [address] [place] [address] CO2 [Moles/Vol] 26 mmol/L Normal 22-32 [facility] Comment on above: Performed By: #### Paula BC, 1751-7, BMP, 70551-9, 2777-1, 2731-8, 40388-2 #### [facility] ([id number]) [address], [address] [place] [address] Creatinine [Mass/Vol] 1.87 mg/dL High 0.40-1.00 [facility] Comment on above: Result Comment: METH OD TRACEABLE TO IDMS STANDARD Performed By: #### Paula BC, 1751-7, BMP, 42079-2, 2777-1, 2731-8, 68605-1 #### [facility] ([id number]) [address], [address] [place] [address] GFR/1.73 sq M.predicted among non-blacks MDRD (S/P/Bld) [Vol rate/Area] 32 mL/min/{1.73_m2} Low >59 [facility] Comment on above: Result Comment: Reported eGFR is based on the CKD-EPI 2020 equation that does not use a race coefficient. Performed By: #### Paula COKER, 1751-7, BMP, 28046-9, 2777-1, 2731-8, 08589-6 #### [facility] ([id number]) [address] [address] [place] [address] Glucose [Mass/Vol] 112 mg/dL High 65-99 [facility] Comment on above: Performed By: #### Paula COKER, 175-7, BMP, 61642-9, 2777-1, 2731-8, 61013-2 #### [facility] ([id number]) [address], [facility] [address] [place] [address] Potassium [Moles/Vol] 2.7 mmol/L Critically low 3.5-5.0 [facility] Comment on above: Performed By: #### Paula COKER, 175-7, BMP, 16515-5, 2777-1, 2731-8, 31372-9 #### [facility] ([id number]) [address] [address] [place] [address] Sodium [Moles/Vol] 141 mmol/L Normal 134-146 [facility] Comment on above: Performed By: #### Paula BC, 1751-7, BMP, 89267-6, 2777-1, 2731-8, 26155-2 #### [facility] ([id number]) [address] [address] [place] [address] Urea nitrogen [Mass/Vol] 17 mg/dL Normal 5-23 [facility] Comment on above: Performed By: #### Paula BC, 175-7, BMP, 23187-2, 2777-1, 2731-8, 90525-0 #### [facility] ([id number]) [address], [address] [place] [address] COMPLETE BLOOD COUNTon 03-11 Erythrocyte distribution width (RBC) [Ratio] 14.3 % Normal 11.5-15.0 [facility] Comment on above: Performed By: #### Paula BC, 1750-7, BMP, 50549-0, 2777-1, 2731-8, 92437-8 #### [facility] ([id number]) [address], [address] [place] [address] Hematocrit (Bld) [Volume fraction] 41.1 % Normal 35-47 [facility] Comment on above: Performed By: #### Paula COKER, 1750-7, BMP, 92546-0, 7-1, 2731-8, 79049-6 #### [facility] ([id number]) [address] [place] [address] Hemoglobin (Bld) [Mass/Vol] 14.7 g/dL Normal 11.7-15.5 [facility] Comment on above: Performed By: #### Paula COKER, 1750-7, BMP, 67475-5, 2777-1, 2731-8, 09528-0 #### [facility] ([id number]) [address], [address] [place] [address] MCH (RBC) [Entitic mass] 31.7 pg Normal 27-34 [facility] Comment on above: Performed By: #### Paula BC, 1750-7, BMP, 50274-1, 2777-1, 2731-8, 77537-4 #### [facility] ([id number]) [address], [address] [place] [address] MCHC (RBC) [Mass/Vol] 35.9 g/dL Normal 32-36 [facility] Comment on above: Performed By: #### C BC, 175-7, BMP, 47264-0, 2777-1, 2731-8, 94615-1 #### [facility] ([id number]) [address] [place] [address] MCV (RBC) [Entitic vol] 89 fL Normal 80-100 [facility] Comment on above: Performed By: #### Paula BC, 175-7, BMP, 61061-4, 2777-1, 2731-8, 55340-9 #### [facility] ([id number]) [address], [address] [place] [address] Platelet mean volume (Bld) [Entitic vol] 9.1 fL Normal 7-12 [facility] Comment on above: Performed By: #### Paula COKER, 1750-7, BMP, 28746-9, 2777-1, 2731-8, 10191-1 #### [facility] ([id number]) [address] [place] [address] Platelets (Bld) [#/Vol] 214 10*3/uL Normal 150-450 [facility] Comment on above: Performed By: #### Paula COKER, 1750-7, BMP, 90461-9, 2777-1, 2731-8, 40229-3 #### [facility] ([id number]) [address], [address] [place] [address] RBC COUNT 4.64 X10E12/L Normal 3.80-5.20 [facility] Comment on above: Performed By: #### Paula BC, 175-7, BMP, 59448-8, 2777-1, 2731-8, 96711-7 #### [facility] ([id number]) [address], [address] [place] [address] WBC (Bld) [#/Vol] 5.8 10*3/uL Normal 4.0-11.0 [facility] Comment on above: Performed By: #### Paula COKER, 1750-7, BMP, 13361-9, 2776-, 2730-8, 87421-1 #### [facility] ([id number]) [address], [address] [place] [address] MAGNESIUMon 03-11-2024 Magnesium [Mass/Vol] 2.1 mg/dL Normal 1.8-2.6 [facility] Comment on above: Performed By: #### Paula COKER, 1750-7, BMP, , 2776-, 2730-8, 72218-1 #### [facility] ([id number]) [address], [address] [place] [address] MICROALBUMIN - ALBUMIN:CREAT ININE URINE RATIOon 03-11-2024 ALB/CREAT RATIO 33.9 mg/g creat High 0.0-30.0 [facility] Comment on above: Performed By: #### DANDY Matthews #### [facility] ([id number]) [address], [address] [place] [address] Albumin DL <= 20 mg/L (U) [Mass/Vol] 4.5 mg/dL High 0.0-1.9 [facility] Comment on above: Performed By: #### DANDY Matthews #### [facility] ([id number]) [address], [address] [place] [address] URINE CREAT 132.58 mg/dL Normal [facility] Comment on above: Performed By: #### DANDY Matthews #### [facility] ([id number]) [address], [address] [place] [address] PHOSPHORUSon 03-11-2024 Phosphate [Mass/Vol] 3.5 mg/dL Normal 2.4-4.9 [facility] Comment on above: Performed By: #### Paula COKER, 1750-7, LYRIC, 17235-5, 2776-, 8, 29932-5 #### [facility] ([id number]) [address], [address] [place] [address] Parathyrin.intact [Mass/Vol] on 03-11-2024 PTH INTACT 52 pg/mL Normal 12-88 [facility] Comment on above: Performed By: #### C BC, 1751-7, BMP, 45618-4, 2777-1, 2731-8, 35022-6 #### [facility] ([id number]) [address], [address] [place] [address] URINALYSISon 03-11-2024 Bilirubin Ql (U) Negative Normal NEG [facility] Comment on above: Performed By: #### Saqib Nelson, DANDY #### [facility] ([id number]) [address], [address] [place] [address] BLOOD/HGB Trace Abnormal NEG [facility] Comment on above: Performed By: #### Saqib Nelson, DANDY #### [facility] ([id number]) [address], [address] [place] [address] Color (U) YELLOW Normal YELLOW [facility] Comment on above: Performed By: #### Saqib Nelson, DANDY #### [facility] ([id number]) [address], [address] [place] [address] Glucose Ql (U) Negative Normal NEG [facility] Comment on above: Performed By: #### Saqib Nelson, DANDY #### [facility] ([id number]) [address], [address] [place] [address] Ketones Ql (U) Negative Normal NEG [facility] Comment on above: Performed By: #### Saqib Nelson, DANDY #### [facility] ([id number]) [address], [address] [place] [address] Leukocyte esterase Test strip Ql (U) Large Abnormal NEG [facility] Comment on above: Performed By: #### Saqib Nelson HENRYCHARLA #### [facility] ([id number]) [address] [place] [address] MUCOUS PRESENT Abnormal NONE [facility] Comment on above: Performed By: #### Saqib Nelson HENRYCHARLA #### [facility] ([id number]) [address] [place] [address] Nitrite Ql (U) Positive Abnormal NEG [facility] Comment on above: Performed By: #### Saqib Nelson HENRYCHARLA #### [facility] ([id number]) [address] [place] [address] pH (U) 6.5 [pH] Normal 5.0-8.5 [facility] Comment on above: Performed By: #### Saqib Nelson HENRYCHARLA #### [facility] ([id number]) [address], [address] [place] [address] Protein Ql (U) 30 mg/dL Abnormal NEG [facility] Comment on above: Performed By: #### DANDY Matthews #### [facility] ([id number]) [address] [place] [address] R.B.CELLS 3 /hpf Normal 0-5 [facility] Comment on above: Performed By: #### Saqib Nelson HENRYCHARLA #### [facility] ([id number]) [address] [place] [address] Specific gravity (U) [Rel density] 1.017 Normal 1.003-1.035 [facility] Comment on above: Performed By: #### DANDY Matthews #### [facility] ([id number]) [address] [place] [address] SQUAMOUS EPITHELIUM 1 /hpf Normal 0-5 [facility] Comment on above: Performed By: #### Saqib Nelson HENRYCHARLA #### [facility] ([id number]) [address] [place] [address] TURBIDITY HAZY Abnormal CLEAR [facility] Comment on above: Performed By: #### Saqib Nelson, HENRYCHARLA #### [facility] ([id number]) [address] [place] [address] Urobilinogen (U) [Mass/Vol] mg/dL Normal <1.1 [facility] Comment on above: Performed By: #### Saqib Nelson, HENRYCHARLA #### [facility] ([id number]) [address] [facility] [place] [address] W.B.CELLS 393 /hpf High 0-5 [facility] Comment on above: Performed By: #### Saqib Nelson, HENRYCHARLA #### [facility] ([id number]) [address] [facility] [address] [place] [address] Vitamin D+Metabolites [Mass/ Vol]on 03-11-2024 VITAMIN D 25 HYD TOT 25.6 ng/mL Low 30-100 [facility] Comment on above: Result Comment: Vitamin D status 25 [place] Vitamin D Deficiency <20 ng/mL Insufficiency 20-29 ng/mL Sufficiency 30-100 ng/mL Toxicity >100 ng/mL NOTE: A pediatric reference range has not been established by the bridal sales consultant of this kit. The [place] [employer] recommends a Vitamin D level of = or >20ng/mL in infants and children. Performed By: #### C BC, 1751-7, BMP, 41921-8, 2777-1, 2731-8, 09026-9 #### [facility] ([id number]) [address], [address] [place] [address] No Panel InformationOrdered By: Tori Escobedo on 02-17-2024 Quick Strep (POC) [facility] XR HIP LT 2 3V W PELVISon [...] MANJEET MARTINI Date: 2022-09-09 17:50 Normal [facility] CULTURE URINEon 06-25-2022 CULTURE URINE Isolate 1 Escherichia coli >100,000 cfu/mL of ORGANISM 1 Escherichia coli ANTIBIOTIC M.I.C RX STATUS Ampicillin 4 S F Ampicillin/Sulbactam <=2 S F Piperacillin/Tazobac de la torre <=4 S F Cefazolin <=4 S F Ceftazidime <=1 S F Ceftriaxone <=1 S F Ertapenem <=0.5 S F Imipenem <=0.25 S F Amikacin <=2 S F Gentamicin <=1 S F Tobramycin <=1 S F Ciprofloxacin <=0.25 S F Levofloxacin <=0.12 S F Nitrofurantoin <=16 S F Trimethoprim/Sulfame thoxazole <=20 S F Normal [facility] Comment on above: Performed By: #### U RCX #### [facility] [address] [place] [address] Dr. Ginny River ER URINE PROFILEon 2 Bilirubin Ql (U) Negative Normal NEGATIVE [facility] Comment on above: Performed By: #### JANNA KINCAID #### [facility] [address] [place] [address] Dr. Ginny River Clarity (U) SL CLOUDY Abnormal CLEAR [facility] Comment on above: Performed By: #### MINERVA KINCAIDRO #### [facility] [address] [place] [address] Dr. Ginny River Color (U) LT. YELLOW Normal YELLOW [facility] Comment on above: Performed By: #### JANNA KINCAID #### [facility] [address] [address] [address] Ginny LOYD A micrscopic examination will be performed if indicated. Normal [facility] Comment on above: Performed By: #### MINERVA KINCAIDRO #### [facility] [address] [address] [address] Ginny River Glucose Ql (U) Negative Normal NEGATIVE [facility] Comment on above: Performed By: #### MINERVA KINCAIDRO #### [facility] [address] [place] [address] Dr. Ginny River Hemoglobin Ql (U) Negative Normal NEGATIVE The [facility] Comment on above: Performed By: #### MINERVA KINCAIDRO #### [facility] [address] [place] [address] Dr. Ginny River Ketones Ql (U) Negative Normal NEGATIVE The [facility] Comment on above: Performed By: #### MINERVA KINCAIDRO #### [facility] [address] [place] [address] Dr. Ginny River LEUKOCYTES MODERATE Abnormal NEGATIVE The [facility] Comment on above: Performed By: #### MINERVA KINCAIDRO #### [facility] [address] [place] [address] Dr. Ginny River Nitrite Ql (U) Positive Abnormal NEGATIVE The [facility] Comment on above: Performed By: #### MINERVA KINCAIDRO #### [facility] [address] [place] [address] Dr. Ginny River pH (U) 6.0 [pH] Normal 5-9 [facility] Comment on above: Performed By: #### MINERVA KINCAIDRO #### [facility] [address] [place] [address] Dr. Ginny River SPEC GRAVITY 1.015 Normal 1.005-<=1.025 [facility] Comment on above: Performed By: #### MINERVA KINCAIDRO #### [facility] [address] [place] [address] Dr. Ginny River UA PROTEIN Negative Normal NEGATIVE/ TRACE The [facility] Comment on above: Performed By: #### E RUR, UMICRO #### [facility] [address] [place] [address] Dr. Ginny River UR MICRO IND INDICATED Normal The [facility] Comment on above: Performed By: #### E RUR, UMICRO #### [facility] [address] [place] [address] Dr. Ginny River Urobilinogen Qn (U) 0.2 {Rachele'U}/dL Normal 0.2 - 1. 0 The [facility] Comment on above: Performed By: #### E RUR, UMICRO #### [facility] [address] [place] [address] Dr. Ginny River URINE MICROSCOPIC ONLYon BACTERIA MODERATE Abnormal NONE SEEN The [facility] Comment on above: Performed By: #### E RUR, UMICRO #### [facility] [address] [place] [address] Dr. Ginny River Bacteria identified Cx Nom (U) INDICATED Normal The [facility] Comment on above: Performed By: #### E RUR, UMICRO #### [facility] [address] [place] [address] Dr. Ginny River CAST NONE SEEN Normal NONE SEEN The [facility] Comment on above: Performed By: #### E RUR, UMICRO #### [facility] [address] [place] [address] Dr. Ginny River Crystals LM Nom (Urine sed) NONE SEEN Normal NONE SEEN The [facility] Comment on above: Performed By: #### E RUR, UMICRO #### [facility] [address] [place] [address] Dr. Ginny River Epithelial cells LM Ql (Urine sed) MODERATE Abnormal NONE SEEN /RARE The [facility] Comment on above: Performed By: #### E RUR, UMICRO #### [facility] [address] [place] [address] Dr. Ginny River MUCOUS NONE SEEN Normal NONE SEEN The [facility] Comment on above: Performed By: #### E RUR, UMICRO #### [facility] [address] [address] [address] Ginny River RBC 0-2 Normal 0-2 The [facility] Comment on above: Performed By: #### JANNA KINCAID #### [facility] [address] [address] [address] Ginny River WBC 20-50 Abnormal NONE SEEN The [facility] Comment on above: Performed By: #### JANNA KINCAID #### [facility] [address] [address] [address] Ginny River Vital Signs Date Time Vital Sign Value Performing Clinician Facility 01-19-2025 16:47-0400 Body height 160.02 cm Jarrell Phillipsring DO Work Phone: [facility] 01-19-2025 16:47-0400 Body mass index (BMI) [Ratio] 32.9 kg/m2 Jarrell Louis DO Work Phone: [facility] 01-19-2025 16:47-0400 Body temperature 97.6 [degF] Jarrell Louis DO Work Phone: [facility] 01-19-2025 16:47-0400 Body weight 84.36 kg Jarrell Louis DO Work Phone: [facility] 01-19-2025 16:47-0400 Diastolic blood pressure 76 mm[Hg] Jarrell Louis DO Work Phone: [facility] 01-19-2025 16:47-0400 Heart rate 66 /min Jarrell Louis DO Work Phone: [facility] 01-19-2025 16:47-0400 Respiratory rate 18 /min Jarrell Louis DO Work Phone: [facility] 01-19-2025 16:47-0400 SaO2% (BldA) [Mass fraction] 98 % Jarrell Louis DO Work Phone: [facility] 01-19-2025 16:47-0400 Systolic blood pressure 118 mm[Hg] Jarrell Louis DO Work Phone: [facility] 12-07-2024 18:19-0400 Body height 160.02 cm [facility] 12-07-2024 18:19-0400 Body mass index (BMI) [Ratio] 33 kg/m2 [facility] 12-07-2024 18:19-0400 Body temperature 98.1 [degF] [facility] 12-07-2024 18:19-0400 Body weight 84.53 kg [facility] 12-07-2024 18:19-0400 Diastolic blood pressure 78 mm[Hg] [facility] 12-07-2024 18:19-0400 Heart rate 72 /min [facility] 12-07-2024 18:19-0400 Respiratory rate 19 /min [facility] 12-07-2024 18:19-0400 SaO2% (BldA) [Mass fraction] 98 % [facility] 12-07-2024 18:19-0400 Systolic blood pressure 135 mm[Hg] [facility] 11-09-2024 17:43-0500 Body height 160.02 cm [facility] 11-09-2024 17:43-0500 Body mass index (BMI) [Ratio] 32.4 kg/m2 [facility] 11-09-2024 17:43-0500 Body temperature 97.6 [degF] [facility] 11-09-2024 17:43-0500 Body weight 83 kg [facility] 11-09-2024 17:43-0500 Diastolic blood pressure 83 mm[Hg] [facility] 11-09-2024 17:43-0500 Heart rate 78 /min [facility] 11-09-2024 17:43-0500 Respiratory rate 12 /min [facility] 11-09-2024 17:43-0500 SaO2% (BldA) [Mass fraction] 96 % [facility] 11-09-2024 17:43-0500 Systolic blood pressure 141 mm[Hg] [facility] 02-17-2024 18:44-0400 Body height 160.02 cm [facility] 02-17-2024 18:44-0400 Body mass index (BMI) [Ratio] 33.3 kg/m2 [facility] 02-17-2024 18:44-0400 Body temperature 97.2 [degF] [facility] 02-17-2024 18:44-0400 Body weight 85.5 kg [facility] 02-17-2024 18:44-0400 Heart rate 64 /min [facility] 02-17-2024 18:44-0400 Respiratory rate 18 /min [facility] 02-17-2024 18:44-0400 SaO2% (BldA) [Mass fraction] 97 % [facility] 07-18-2023 17:35-0400 Body height 160.02 cm Dianna Lainezmond Other [employer] [facility] [employer] Other 07-18-2023 17:35-0400 Body mass index (BMI) [Ratio] 34.4 kg/m2 Dianna Lainezmond Other [employer] Other 07-18-2023 17:35-0400 Body temperature 97.9 [degF] Dianna Lainezmond Other [employer] Other 07-18-2023 17:35-0400 Body weight 88.09 kg Dianna Lainezmond Other [employer] Other 07-18-2023 17:35-0400 Diastolic blood pressure 75 mm[Hg] Dianna Lainezmond Other [employer] Other 07-18-2023 17:35-0400 Respiratory rate 18 /min Dianna Lainezmond Other [employer] Other 07-18-2023 17:35-0400 SaO2% (BldA) [Mass fraction] 95 % Dianna Thomas Other [employer] Other 07-18-2023 17:35-0400 Systolic blood pressure 131 mm[Hg] Dianna Thomas Other [employer] Other 02-20-2022 19:20-0400 Body height 160.02 cm Dianna Thomas Other [employer] Other 02-20-2022 19:20-0400 Body mass index (BMI) [Ratio] 33.83 kg/m2 Dianna Thomas Other [employer] Other 02-20-2022 19:20-0400 Body temperature 98.5 [degF] Dianna Thomas Other [employer] Other 02-20-2022 19:20-0400 Body weight 86.64 kg Dianna Thomas Other [employer] Other 02-20-2022 19:20-0400 Respiratory rate 16 /min Dianna Thomas Other [employer] Other 02-20-2022 19:20-0400 SaO2% (BldA) [Mass fraction] 97 % Dianna Thomas Other [employer] Other Encounters Encounter Date Encounter Type Care Provider Facility Start: 01-19-2025 End: 01-19-2025 ambulatory Jarrell Louis DO Work Phone: [facility] Work Phone: Start: 01-19-2025 End: 01-19-2025 Patient encounter procedure Jarrell Louis DO Work Phone: [facility] Work Phone: Start: 12-07-2024 End: 12-07-2024 ambulatory [facility] Work Phone: Start: 12-07-2024 End: 12-07-2024 Patient encounter procedure [facility] Work Phone: Start: 11-26-2024 End: 11-26-2024 ambulatory JARRELL LOUIS [facility] Start: 11-09-2024 End: 11-09-2024 ambulatory [facility] Work Phone: Start: 11-09-2024 End: 11-09-2024 Patient encounter procedure [facility] Work Phone: Start: 05-28-2024 End: 05-28-2024 ambulatory [facility] Start: 03-11-2024 End: 03-11-2024 ambulatory [facility] Start: 02-17-2024 End: 02-17-2024 ambulatory [facility] Work Phone: Start: 02-17-2024 End: 02-17-2024 Patient encounter procedure [facility] Work Phone: Start: 07-18-2023 End: 07-18-2023 ambulatory Dianna Thomas Other [facility] [employer] Other Start: 07-18-2023 Office outpatient visit 15 minutes Dianna Thomas [facility] Start: 09-09-2022 End: 09-09-[address] JARRELL LOUIS Facility:[facility] Start: 06-22-2022 End: 06-22-2022 ambulatory MARY KATE ECHEVARRIA Facility:[facility] Start: 06-13-2022 Transcribe Orders Marilou Cortes [facility]erral [facility] Start: 02-20-2022 End: 02-20-2022 ambulatory Dianna Thomas Other [facility] [employer] Other Start: 02-20-2022 Office outpatient visit 15 minutes Dianna Thomas [facility] Procedures Date Procedure Procedure Detail Performing Clinician Start: 01-19-2025 Plain chest X-ray Jarod Louis DO Work Phone: Start: 02-17-2024 Quick Strep (POC) Plan of Treatment Date Care Activity Detail Author Start: 06-22-2022 Influenza vaccination Influenza Vaccine (#1) [facility] Start: 2021 Measurement of occult blood in single stool specimen FIT [facility] Start: 2021 Screening for malignant neoplasm of breast Mammography [facility] Start: 2021 Screening for malignant neoplasm of colon CRC Screening [facility] Start: 2021 Shingles (RZV) Vaccine (1 of 2) Shingles (RZV) Vaccine (1 of 2) [facility] Start: 2016 Cholesterol [Mass/volume] in Serum or Plasma Cholesterol [facility] Start: 1992 Screening for malignant neoplasm of cervix Pap Smear [facility] Start: 1990 Tetanus vaccination Tetanus (Td or Tdap) Booster [facility] Start: 1989 Hepatitis C screening Hepatitis C Antibody [facility] Start: 1989 Tetanus + diphtheria + acellular pertussis vaccine (product) Tdap Booster [facility] Start: 1986 HIV screening HIV Test [facility] Start: 1971 COVID-19 Vaccine (#1) COVID-19 Vaccine (#1) [facility] Start: 1971 Screening for malignant neoplasm of colon Colonoscopy [facility] XR Chest 2 Views [facility] Payers Date Payer Category Payer Self-pay [id number] 2022 Medicaid [id number] 2021 Medicaid [employer] [id number] 2021-Present [phone] [address] [place] [address] Medicaid HMO [id number] 1971 Unknown [id number] 1971 Unknown [id number] 1971 Unknown [id number] 1971 Unknown [id number] 1971 Unknown [id number] 1959 Unknown [id number] Medicaid [place] [employer] [id number] Unknown [id number] Social History Date Type Detail Facility Unknown if ever smoked [employer] Other Sex Assigned At Sex Assigned At Bir th [employer] Other Tobacco smoking status [facility] Tobacco smoking consumption unknown [facility] Start: 1970 Sex Assigned At Not [facility] file [facility] Start: 1970 Sex Assigned At Female F [facility] Start: 11-09-2024 End: 01-19-2025 Tobacco smoking status ILIS Smoker (finding) [facility] Start: 11-09-2024 End: 01-20-2025 Sex Female (finding) [facility] Evaluation note 11-09-2024 Note Date & Type Note Facility 11-09-2024 Evaluation note Diagnosis Onset Date Resolution Rash and nonspecific skin eruption noneactive November 09, 025 5:40pm [facility] Work Phone: Evaluation note 11-09-2024 Note Date & Type Note Facility 11-09-2024 Evaluation note Diagnosis Onset Date Resolution Rash and nonspecific skin eruption noneactive November 09, 025 5:40pm Acute bronchitis, viral noneactive M arch 2024 6:14pm [facility] Work Phone: Evaluation note 11-09-2024 Note Date & Type Note Facility 11-09-2024 Evaluation note Diagnosis Onset Date Resolution Rash and nonspecific skin eruption noneactive November 09, 025 5:40pm Acute bronchitis, viral noneactive M [facility] 2024 6:14pm Bronchitis acute January 19 4:33pm [facility] Work Phone: Evaluation note 07-18-2023 Note Date & Type [...] with your dentist as soon as possible. [employer] Other Evaluation note 02-20-2022 Note Date & [...] dose. Follow-up with your dentist as scheduled. [employer] Other Evaluation note Note Date & Type Note Facility Evaluation note Diagnosis Dental caries- Primary Unspecified dental caries documented in this encounter [facility] Evaluation note Note Date & Type Note Facility Evaluation note No assessment information availa [facility] Work Phone: History general Narrative - Reported Note Date & Type Note Facility History general Narrative - Reported Type Medical History anemia, iron deficient Medical History hypertension Medical History only one kidney on right side. Medical History stage 3 kidney disease. Surgical History tubal ligation Surgical History teeth removal Surgical History eyes lift [employer] Other Reason for Referral Specialty Diagnoses / Procedures Referred By Lety guallpa Referred To Contact Oral Surgery Diagnoses Dental caries Kinsey Clarke, DDS [address] [place] [address] S ORAL SURGERY [address] [place] [address] Referral ID Status Reason Start Date Expiration Date V isits Requested Visits Authorized [id number] Authorized 06/13/2022 06/13/2023 3 3 Scheduling Instructions Please call the [facility] at [facility] at to schedule an appointment if one was not made for you today. Comments EXT #18, 29 WANTS SEDATION Summary Purpose Family History No Family History Records Found Relationship Condition Age at Onset Recorded Date/T randy father Unknown Not Specified Heart disease Unknown Diabetes mellitus Unknown Hypertension Unknown Relationship Condition Age at Onset Recorded Date/T randy father Unknown mother Heart disease Unknown Diabetes mellitus Unknown Hypertension Unknown Advance Directives No Advanced Directives Records Found Advance Directive Response Recorded Date/ Time Advance Directives No February 16 6:26pm Advance Directive Response Recorded Date/ Time Advance Directives No February 16 5:26pm Chief Complaint and Reason for Visit Chief Complaint Sore throat Chief Complaint Admit Date Rash November 09, 2024 5:40pm Chief Complaint Admit Date Rash November 09, 2024 5:40pm Congestion December 07, 2024 6:1 4pm Reason for Visit Admit Date Rash and nonspecific skin eruption Febru 2024 5:40pm Chief Complaint Admit Date Rash November 09, 2024 5:40pm Congestion December 07, 2024 6:1 4pm Congestion January 19, 2025 4:3 3pm Reason for Visit Admit Date Rash and nonspecific skin eruption Febru 2024 5:40pm Acute bronchitis, viral December 07, 2024 6:14pm Reason for Visit Admit Date Rash and nonspecific skin eruption Febru 2024 5:40pm Acute bronchitis, viral December 07, 2024 6:14pm Bronchitis January 19, 2025 4:3 3pm Additional Source Comments REASON FOR VISIT (unrecogniz ed section and content) TOOTH PAIN RIGHT LOWERTOOTH ACHE INFORMATION SOURCE (unrecogn ized section and content) DATE CREATED AUTHOR 09/13/2022 [facility] DATE CREATED AUTHOR AUTHOR'S ORGANIZ ATION 11/28/2024 [facility] DATE CREATED AUTHOR AUTHOR'S ORGANIZ ATION 01/28/2025 [facility] Care Teams (unrecognized sec tion and content) Team Status: Active Member Role Status Dates Jarrell Louis DO Primary Care Provider Active Team Status: Inactive Member Role Status Dates Jarrell Louis DO Primary Care Provider Active Start: February 17, 2024 End: February 17, 2024 Tori Escobedo APRN Attending Provider Active S tart: February 17, 2024 End: February 17, 2024 Team Status: Inactive Member Role Status Dates Jarrell oLuis DO Primary Care Provider Active Start: November 09, 2024 End: November 09, 2024 Grace Hedrick APRN Attending Provider Active Start: November 09, 2024 End: November 09, 2024 Team Status: Inactive Member Role Status Dates Jarrell Louis DO Primary Care Provider Active Start: December 07, 2024 End: December 07, 2024 Grace Hedrick APRN Attending Provider Active Start: December 07, 2024 End: December 07, 2024 Team Status: Inactive Member Role Status Dates Jarrell Louis DO Primary Care Provider Active Start: January 19, 2025 End: January 19, 2025 Tori Escobedo APRN Attending Provider Active S tart: January 19, 2025 End: January 19, 2025 Team Status: Active Member Role Status Dates Jarrell Louis DO Primary Care Provider Active Start: January 19, 2025 Tori Escobedo APRN Attending Provider Active S tart: January 19, 2025 Goals (unrecognized section and content) Goals may [...] BE BASED ON THE PRIMARY CLINICAL RECORDS. [employer] [facility]. provides no warranty or guarantee of the accuracy or completeness of information in this document.
--- NOTE | 2025-03-10 16:27 | ECG_ITS ---
The [facility] Test Date: 2025-03-10 Pat Name: MEMO SEGAL Department: Room: - Gender: Female Prototype Carpenter: : 1970 Requested By: [id number] Order Number: [id number] Reading MD: DRAKE BHARDWAJ M.D. Measurements Intervals [place] Rate: 59 P: 60 NH: 200 QRS: 51 QRSD: 80 T: 63 QT: 442 QTc: 441 Interpretive Statements 1100 Sinus rhythm 9110 normal ECG No previous ECG available for comparison Electronically Signed On 03-11-2025 19:25:01 EDT by DRAKE BHARDWAJ M.D.
--- NOTE | 2025-03-10 16:30 | XR_ITS ---
The [place] [id number] Patient Name: MEMO SEGAL MRN: [id number] date: 1970 Sex: F Assigned Patient Location: ED.MAIN Current Patient Location: ED.MAIN Accession/Order Number: [id number] Exam Date: 03/10/2025 17:04 Report Date: 03/10/2025 17:07 At the request of: GREGORIA RIOS MD Procedure: XR chest 2V XR chest 2V 03/10/2025 4:45 PM SIGNS AND SYMPTOMS: Left scapular pain PROTOCOL: Frontal and lateral radiographs of the chest COMPARISON: 09/01/2023 FINDINGS: The trachea is midline. The heart and mediastinal structures are within normal limits. The lung parenchyma is clear. The bony thorax is intact. Degenerative changes are noted in the thoracic spine. XR/XR chest 2V IMPRESSION: No acute cardiopulmonary pathology. Impression dictated by: Silviano Santiago M.D. 03/10/2025 5:07 PM Dictation Location: [place] [address] Electronically authenticated by: [id number] Y Date: 03/10/2025 17:07
--- NOTE | 2025-03-10 17:37 | PC.NURSE ---
pt has had L shoulder for the past 3 days denies any cardiac history -- denies feeling SOB
--- NOTE | 2025-03-10 17:59 | ED.GENADUL1 ---
HPI HPI - General Adult General Chief complaint: Extremity Injury, Upper Stated complaint: SHOULDER PAIN Time Seen by Provider: 03/10/25 16:30 Source: patient Mode of arrival: walk-in Limitations: no limitations History of Present Illness HPI narrative: The patient 54-year-old female with no past history except for migraine and hypertension, the patient is coming to the ER with a left-sided posterior shoulder blade pain that started almost 3 to 4 days ago, the patient mentioned that the pain is there mostly when she moves her upper arm as well as take a deep breath, she does work at the [employer] and she carry things all the time The patient does not have any nausea no difficulty breathing and she does not have any history of coronary artery disease The patient denies any cough or any other concerns as well Related Data Home Medications ?Medication ?Instructions ?Recorded ?Confirmed alprazolam 0.25 mg tablet 0.25 mg PO DAILY PRN anxiety 05/09/24 05/09/24 hydrochlorothiazide 25 mg tablet 25 mg PO DAILY 05/09/24 03/10/25 metoprolol tartrate 100 mg tablet 100 mg PO BID 05/09/24 03/10/25 potassium chloride 10 mEq 30 meq PO BID 05/09/24 03/10/25 tablet,extended release Previous Rx's ?Medication ?Instructions ?Recorded [id number]-[id number] 1 cap PO Q8H PRN headache #6 caps 09/01/23 50 mg-300 mg-40 mg capsule (Fioricet) Held on 03/10/25. Instructions: Resume on 03/17/25. hold while using tylenol acetaminophen 650 mg 650 mg PO Q8H PRN pain #20 tabs 03/10/25 tablet,extended release (Tylenol 8 Hour) methylprednisolone 4 mg tablets in 4 mg PO DAILY #21 ea 03/10/25 a dose pack (Medrol (Himanshu)) Allergies Allergy/AdvReac Type Severity Reaction Status Date / Time clindamycin AdvReac Intermediate KIDNEY Verified 03/10/25 16:35 PROBLEMS Opioid HPI Opioid Management Most Recent Opioid Data: Last Pain Scale 6 03/10/25, 16:18 Review of Systems ROS Status of ROS 10 or more systems reviewed and unremarkable except as noted in history and below PFSH PFSH Social History Smoking status: Current every day smoker Little interest or pleasure in doing things: not at all Feeling down, depressed, or hopeless: not at all Exam Narrative Exam Narrative: Nurses notes and vital signs reviewed and patient is not hypoxic. General: Well-appearing and in no apparent distress. Skin: Warm, dry, no pallor noted. No rash. Head: Normocephalic, atraumatic. Neck: Supple, non-tender. Cardiovascular: Regular Rate and Rhythm without murmur, gallop or rub. Respiratory: No accessory muscle use or respiratory distress. Lungs are clear to auscultation, no wheezing, rales or rhonchi Chest Wall: There is tenderness with palpation of the posterior aspect of the chest wall there is no ecchymosis, there is no rash and the patient pain could be induced by abduction of the upper extremity against resistance Back: No midline thoracic or lumbar vertebral tenderness. No CVA tenderness Musculoskeletal: normal ROM, no calf or popliteal tenderness, no lower extremity edema/swelling GI: Abdomen is soft, non-distended. Normal bowel sounds. No masses appreciated. No tenderness to palpation. No rebound, guarding, or rigidity noted. Neurological: A&O x4. No cranial nerve dysfunction observed. No truncal ataxia. Moves all extremities. Sensation intact. Psychiatric: Cooperative and interactive. Normal mood and affect. Constitutional Vital Signs, click to edit/add: Last Vital Signs Temp 97.4 F L 03/10/25 16:18 Pulse 60 03/10/25 16:18 Resp 16 03/10/25 16:18 BP 156/88 H 03/10/25 16:18 Pulse Ox 100 03/10/25 16:18 O2 Del Method Room Air 03/10/25 16:18 Course Vital Signs Vital signs: Vital Signs Temperature 97.4 F L 03/10/25 16:18 Pulse Rate 60 03/10/25 16:18 Respiratory Rate 16 03/10/25 16:18 Blood Pressure 156/88 H 03/10/25 16:18 Pulse Oximetry 100 03/10/25 16:18 Oxygen Delivery Method Room Air 03/10/25 16:18 Temperature 97.4 F L 03/10/25 16:18 Pulse Rate 60 03/10/25 16:18 Respiratory Rate 16 03/10/25 16:18 Blood Pressure 156/88 H 03/10/25 16:18 Pulse Oximetry 100 03/10/25 16:18 Oxygen Delivery Method Room Air 03/10/25 16:18 Medical Decision Making MDM Narrative Medical decision making narrative: Right now the patient EKG showing sinus rhythm with a heart rate of [address] elevation or depression Her chest x-ray also showed no acute pathology The patient presentation mostly muscular she was treated in the ER with prednisone and Tylenol discharged home with Medrol Dosepak and Tylenol as well as rest from her work for 2 days The patient is to follow up with primary care physician in next 2-3 days or to return to the emergency department should any of the signs or symptoms worsen or new symptoms develop. The patient agrees with the following Diagnosis and Treatment plan and the patient will be discharged home. Discharge Plan Discharge Chief Complaint: Extremity Injury, Upper Clinical Impression: Acute chest wall pain Patient Disposition: Home, Self-Care Time of Disposition Decision: 17:56 Condition: Good Mode of Transportation: Private Vehicle Prescriptions / Home Meds: New methylprednisolone [Medrol (Himanshu)] 4 mg tablets,dose pack 4 mg PO DAILY Qty: 21 0RF Rx Instructions: please take as per the medrol dose himanshu instruction acetaminophen [Tylenol 8 Hour] 650 mg tablet extended release 650 mg PO Q8H PRN (Reason: pain) Qty: 20 0RF Held [id number] [Fioricet] 50-300-40 mg capsule 1 cap PO Q8H PRN (Reason: headache) Qty: 6 0RF Hold Instructions: Resume on 03/17/25. hold while using tylenol Rx Instructions: DX: R51 No Action hydrochlorothiazide 25 mg tablet 25 mg PO DAILY metoprolol tartrate 100 mg tablet 100 mg PO BID potassium chloride 10 mEq tablet extended release 30 meq PO BID alprazolam 0.25 mg tablet 0.25 mg PO DAILY PRN (Reason: anxiety) Print Language: [place]ian Instructions: Chest Wall Pain (ED) Referrals: ALEXANDRA LOUIS DO [Primary Care Provider, Family Practice] - 1 week Discharge Date/Time: 03/10/25 18:19
[2025-03-10] MEDS: PREDNISONE 20 MG TABLET 40 MG PO (18:11)
[2025-03-10] MEDS: ACETAMINOPHEN 325 MG TABLET 650 MG PO (18:11)
== END 2025-03-10 18:19 | disposition home or self-care (01) ==
PROVIDERS: Emergency Provider Emergency Medicine; PCP Family Medicine
DX: R07.89 Other chest pain (principal); I10 Essential (primary) hypertension; F17.200 Nicotine dependence, unspecified, uncomplicated
CPT/HCPCS: 71046; 93005; 99283; J7512